=== PATIENT | female | born 1970 | race Caucasian/White ===

== ENCOUNTER → 2018-08-06 21:39 | Outpatient (CLI) | payer BC, SELFPAY ==
[2018-08-13 10:19] LABS: HPV Reflexed? NOT INDICATED
== END ==
PROVIDERS: Referring Provider Nurse Practitioner; Visit Provider Nurse Practitioner
DX: N92.6 Irregular menstruation, unspecified (principal); R58 Hemorrhage, not elsewhere classified; N93.9 Abnormal uterine and vaginal bleeding, unspecified
CPT/HCPCS: 88175; G0145

== ENCOUNTER → 2020-05-07 20:55 | Outpatient (CLI) | payer BC, SELFPAY ==
[2020-05-07 18:56] VITALS: BMI 44.9
[2020-05-07 21:16] LABS: Absolute Lymphocyte Count 1.01 X10^3/uL (0.83-4.51); Absolute Neutrophil Count 6.1 X10^3/uL (2.0-7.7); Basophil# 0.04 X10^3/uL; Basophil% 0.5 % (0-1); Eosinophils% 2.6 % (0-5); Hematocrit 41.3 % (37-47); Hemoglobin 13.2 g/dL (12.0-15.0); Lymphocyte # 1.01 X10^3/ul (4.0); Lymphocyte % 12.9 % (19-41); Mean Corpuscular Hgb 27.6 pg (27.0-32.0); Mean Corpuscular Volume 86.4 fL (81-99); Mean Platelet Vol. 9.1 fl (6.2-12.0); Monocyte# 0.47 X10^3/uL; NRBC Flagged by Analyzer 0 % (0-5); Neutrophil # 6.07 X10^3/uL (2.7-7.7); Neutrophil % 77.9 % (47-70); Platelet Count 278 K/mm3 (150-450); RBC Distribution Width CV 17.3 % (11.6-14.6); Red Blood Count 4.78 M/mm3 (4.2-5.4); White Blood Count 7.8 K/mm3 (4.4-11.0)
[2020-05-07 21:35] LABS: ALB/GLOB Ratio 0.8 RATIO (0.9-2.4); AST(SGOT) 17 U/L (15-37); Alanine Aminotransfer ALT/SGPT 20 U/L (13-56); Albumin, Serum 3.3 g/dL (3.2-5.0); Alkaline Phosphatase 89 U/L (45-117); Anion Gap 6 (5-15); BUN 21 mg/dL (7-18); BUN/Creat Ratio 27.3 RATIO (10-20); Calcium,Total 8.6 mg/dL (8.5-10.1); Chloride 105 mmol/L (98-107); Cholesterol 174 mg/dL (200); Creatinine, Serum 0.77 mg/dL (0.55-1.02); EST Glomerular Filtration Rate 84 mL/min (>60); Est Glom Filt Rate - Afr Amer 102 mL/min (>60); Globulin 4.4 g/dL (2.2-4.2); Glucose 86 mg/dL (74-106); High Density Lipoprotein 42 mg/dL; Potassium 3.8 mmol/L (3.5-5.1); Protein, Total 7.7 g/dL (6.4-8.2); Sodium Level 137 mmol/L (136-145); Thyroid Stim Hormone (TSH) 2.47 uIU/mL (0.358-3.74); Triglycerides 112 mg/dL; Very Low Density Lipoprotein 22 mg/dL (5-40)
== END ==
PROVIDERS: Referring Provider Nurse Practitioner; Visit Provider Nurse Practitioner
DX: I10 Essential (primary) hypertension (principal); F41.9 Anxiety disorder, unspecified
CPT/HCPCS: 80053; 80061; 84443; 85025

== ENCOUNTER → 2020-05-16 20:48 | Outpatient (CLI) | payer BC, SELFPAY ==
[2020-05-16 19:17] VITALS: BMI 44.9
== END ==
PROVIDERS: Referring Provider Nurse Practitioner; Visit Provider Nurse Practitioner
DX: M79.604 Pain in right leg (principal); M79.605 Pain in left leg; R25.2 Cramp and spasm
CPT/HCPCS: 83735

== ENCOUNTER → 2020-05-24 13:22 | Outpatient (CLI) | payer BC, SELFPAY ==
[2020-05-16 19:17] VITALS: BMI 44.9
--- NOTE | 2020-05-24 13:26 | VDLE_ITS ---
Reason For Study: leg pain RIGHT LEFT GSV is normal. GSV is normal. CFV is compressible, spontaneous, phasic, CFV is compressible, spontaneous, phasic, competent and demonstrates normal competent, and demonstrates normal augmentation. augmentation. POP V is compressible, spontaneous, phasic, POP V is compressible, spontaneous, phasic, competent and demonstrates normal competent and demonstrates normal augmentation. augmentation. T/P Trunk is compressible. T/P Trunk is compressible. PTV is compressible. PTV is compressible. RT PerV is compressible. LT PerV is compressible. Prox FV is compressible. Pt was unable to Prox and mid FV are compressible. Pt was tolerate compression of mid and distal FV. unable to tolerate compression of distal FV. Normal venous color flow noted. Normal venous color flow noted. Procedure Exam performed in department. The exam was of fair technical quality due to Pt body habitus. A preliminary report was called and/or faxed to Elissa Lucio. Interpretation Summary Deep veins of the lower extremities appear bilaterally patent. There is no evidence of acute deep vein thrombosis on either side. Valvular competence appears intact within the proximal deep venous systems bilaterally. The great saphenous veins appear bilaterally patent and compressible segmentally. Ordering Physician: Elissa Lucio Performed By: Russell Perez, RVT
== END ==
LOC: CVS 13:25
PROVIDERS: PCP Nurse Practitioner; Referring Provider Nurse Practitioner; Visit Provider Nurse Practitioner
DX: M79.604 Pain in right leg (principal); R25.2 Cramp and spasm; R60.0 Localized edema
CPT/HCPCS: 93970

== ENCOUNTER 2020-06-18 17:45 | Outpatient (RCR) | payer BC, SELFPAY ==
[2020-05-25 18:35] VITALS: BMI 44.9
--- NOTE | 2020-06-20 12:54 | HP.OTEVAL_ITS ---
Patient's Visit Information JOHN FALCON is a 49 year old F, referred to Occupational Therapy by Elissa Lucio NP-Zeke, with a diagnosis of LE lymphedema. Date of Evaluation: 06/18/20 Occupational Therapist: Mireille Medina, OTR/Rena, CHT - Subjective This 49 year old female was seen for OT eval with dx of lymphedema- pt states her swelling has been constant - swelling does not go down and swelling stays in calf area- does not go to toes- pt states she had vascular sx two years ago due to leg pain and swelling. pts leg swelling did not change and pain started 6-8 months after this leg sx. pt states she attempted to wrap her LE with rpitesh wraps for about 4 days but could not keep them up. she even attempted to wear leggings to try to keep wraps up. 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 unless walking back and forth in her work area. pt states her shoes are comfortable. - Pain BLE 0 Pain Intensity Range: 3, 7 - Lymphedema (Circumferential Measure) Mid-foot: right 24cm left 23cm Ankle: right 25cm left 25cm Lower calf: right 39cm left 41cm Largest calf: right 58cm left 58cm Below knee: right 52cm 55cm Lower Exremity Comments: no toe swelling or ankle swelling- pt states swelling in in bilateral calf region-. all LE tissue is soft and supple. no pitting edema noted- skin clean smooth and soft- No dry skin noted - Lower Limb Functional Index Lower Extremity Functional Score: 59 - Goals Demonstrate a 20% reduction in edema by d/c: Yes Demonstrate adequate knowledge skin care/prec by 2nd week: Yes Demonstrate adequate knowledge therapeutic exercises by d/c: Yes Select approp compression garment w/donning/care/wear by d/c: Yes Voice need to replace compression garment every 4-6mo by dc: Yes - Rehabilitation General Assessment: PT demo a need for skilled OT services to ed. pt on compression garment use, exercise to decrease pts leg pain and find compression sock or alternative pt can mtg her LE lymphedema with. Today therapsit spoke in length of compression socks and due to the shape of her legs (thin at foot and ankle large at calf) that it is difficult to keep wraps or compression socks up- therapist ed. pt on use of adhesive glue, compression class 15-20/20-30 mmHg. along with compression alternatives (velcro closer). Therapsit ed. pt on stretching to decrease leg pain, advised pt to stop performing toe raises while at work and a better alternative would be ankle pumps. pt demo understanding. once pt recieves compression garment of her choice pt to return to ensure fit and knowledge of exercises to stimulate circulation. Therapist ed. pt that [facility] was not a durable eq. facility and we could not order garments for her. pt demo understanding and was advised to order on line or [facility], [employer] pt demo understanding and agree to POC. Rehabilitation Potential: Questionable - Anticipated Interventions Education re assistive Equipment, Education re Diagnosis, Manual Lymph Drainage, Education re Life-long lymphedema Management, Education re Self-Bandaging Techniques, Education re Skin Care and Precautions, Education re Self Massage Techniques, Education re Correct Donning Tech,Care&Wearing Sched Comp Garments, Caregiver Training, Home Program - Visit Plan Frequency: 1x/Week Duration: 3 Weeks TEXT: Thank you for the opportunity to evaluate your patient. For Medicare and Medicare HMO plans, please review the plan of care and approve it. It will need to be FAXED BACK to us at [phone] for Medicare purposes. Please let me know if there are questions or concerns regarding this plan of care. Physician Signature: Date:
--- NOTE | 2020-10-09 13:39 | HP.OT.NRP ---
JOHN FALCON was seen in my office for initial evaluation on 06/18/20. The following Plan of Care was established for this patient: Initial Frequency: 1x/Week Initial Duration: 3 Weeks Anticipated Interventions: Education re assistive Equipment, Education re Diagnosis, Manual Lymph Drainage, Education re Life-long lymphedema Management, Education re Self-Bandaging Techniques, Education re Skin Care and Precautions, Education re Self Massage Techniques, Education re Correct Donning Tech,Care&Wearing Sched Comp Garments, Caregiver Training, Home Program This patient was last seen in our office 06/18/20. Pertinent comments regarding their Occupational therapy will appear below: pt seen for eval only- no further apts were scheduled. Due to time lapse in services pt dc at this time. At this point I will be discontinuing this patient from occupational therapy. I would be happy to see this patient again in the future if found appropriate by the physician. Thank you! Mireille Medina, OTR/L, CHT
== END 2020-06-18 19:00 | disposition home or self-care (01) ==
LOC: OT 17:45
PROVIDERS: PCP Nurse Practitioner; Referring Provider Nurse Practitioner; Visit Provider Nurse Practitioner
DX: I89.0 Lymphedema, not elsewhere classified (principal)
CPT/HCPCS: 97166

== ENCOUNTER → 2021-05-10 23:35 | Outpatient (CLI) | payer BC, SELFPAY ==
[2021-05-10 17:25] VITALS: BMI 46.4
[2021-05-10 23:55] LABS: Absolute Lymphocyte Count 1.11 X10^3/uL (0.83-4.51); Absolute Neutrophil Count 4.4 X10^3/uL (2.0-7.7); Basophil# 0.08 X10^3/uL; Basophil% 1.3 % (0-1); Eosinophil# 0.24 X10^3/uL; Eosinophils% 3.9 % (0-5); Hematocrit 42.9 % (37-47); Hemoglobin 13.9 g/dL (12.0-15.0); Lymphocyte # 1.11 X10^3/ul (0.83-4.51); Mean Corp Hgb Conc 32.4 g/dL (32-36); Mean Corpuscular Volume 92.5 fL (81-99); Mean Platelet Vol. 9.3 fl (6.2-12.0); Monocyte# 0.34 X10^3/uL; Monocyte% 5.5 % (0-10); NRBC Flagged by Analyzer 0 % (0-5); Neutrophil # 4.38 X10^3/uL (2.7-7.7); Platelet Count 281 K/mm3 (150-450); RBC Distribution Width SD 47.5 fl (35.1-43.9); Red Blood Count 4.64 M/mm3 (4.2-5.4); White Blood Count 6.2 K/mm3 (4.4-11.0)
[2021-05-11 00:07] LABS: ALB/GLOB Ratio 0.9 RATIO (0.9-2.4); AST(SGOT) 23 U/L (15-37); Alanine Aminotransfer ALT/SGPT 25 U/L (13-56); Albumin, Serum 3.7 g/dL (3.2-5.0); Alkaline Phosphatase 79 U/L (45-117); Anion Gap 7 (5-15); BUN 24 mg/dL (7-18); BUN/Creat Ratio 28.8 RATIO (10-20); Calcium,Total 9.5 mg/dL (8.5-10.1); Chloride 105 mmol/L (98-107); Cholesterol 194 mg/dL (200); Creatinine, Serum 0.83 mg/dL (0.55-1.02); EST Glomerular Filtration Rate 76 mL/min (>60); Est Glom Filt Rate - Afr Amer 93 mL/min (>60); Globulin 4.1 g/dL (2.2-4.2); Glucose 91 mg/dL (74-106); High Density Lipoprotein 56 mg/dL; Potassium 3.3 mmol/L (3.5-5.1); Protein, Total 7.8 g/dL (6.4-8.2); Sodium Level 140 mmol/L (136-145); Triglycerides 131 mg/dL; Very Low Density Lipoprotein 26 mg/dL (5-40)
== END ==
PROVIDERS: PCP Nurse Practitioner; Referring Provider Nurse Practitioner; Visit Provider Nurse Practitioner
DX: I10 Essential (primary) hypertension (principal)
CPT/HCPCS: 80053; 80061; 85025

== ENCOUNTER → 2022-04-16 | Outpatient (CLI) | payer BC, SELFPAY ==
[2022-04-16 21:26] LABS: Absolute Lymphocyte Count 1.43 X10^3/uL (0.83-4.51); Absolute Neutrophil Count 4.3 X10^3/uL (2.0-7.7); Basophil# 0.06 X10^3/uL; Basophil% 0.9 % (0-1); Eosinophils% 3.2 % (0-5); Hematocrit 41.9 % (37-47); Hemoglobin 14.3 g/dL (12.0-15.0); Lymphocyte # 1.43 X10^3/ul (0.83-4.51); Lymphocyte % 22.6 % (19-41); Mean Corp Hgb Conc 34.1 g/dL (32-36); Mean Corpuscular Hgb 30.7 pg (27.0-32.0); Mean Corpuscular Volume 89.9 fL (81-99); Mean Platelet Vol. 9.3 fl (6.2-12.0); Monocyte# 0.36 X10^3/uL; Monocyte% 5.7 % (0-10); NRBC Flagged by Analyzer 0 % (0-5); Neutrophil # 4.26 X10^3/uL (2.7-7.7); Neutrophil % 67.4 % (47-70); Platelet Count 282 K/mm3 (150-450); RBC Distribution Width CV 13.2 % (11.6-14.6); RBC Distribution Width SD 43.3 fl (35.1-43.9); Red Blood Count 4.66 M/mm3 (4.2-5.4); White Blood Count 6.3 K/mm3 (4.4-11.0)
[2022-04-16 21:45] LABS: ALB/GLOB Ratio 1.1 RATIO (0.9-2.4); AST(SGOT) 19 U/L (15-37); Alanine Aminotransfer ALT/SGPT 22 U/L (13-56); Alkaline Phosphatase 73 U/L (45-117); Anion Gap 8 (5-15); BUN 21 mg/dL (7-18); BUN/Creat Ratio 22.3 RATIO (10-20); Calcium,Total 9.4 mg/dL (8.5-10.1); Chloride 101 mmol/L (98-107); Cholesterol 196 mg/dL (200); Creatinine, Serum 0.94 mg/dL (0.55-1.02); EST Glomerular Filtration Rate 66 mL/min (>60); Est Glom Filt Rate - Afr Amer 80 mL/min (>60); Globulin 3.6 g/dL (2.2-4.2); Glucose 93 mg/dL (74-106); High Density Lipoprotein 55 mg/dL; Potassium 3.6 mmol/L (3.5-5.1); Protein, Total 7.6 g/dL (6.4-8.2); Sodium Level 136 mmol/L (136-145); Triglycerides 103 mg/dL; Very Low Density Lipoprotein 21 mg/dL (5-40)
== END | disposition home or self-care (01) ==
PROVIDERS: PCP Nurse Practitioner; Referring Provider Nurse Practitioner; Visit Provider Nurse Practitioner
DX: F41.9 Anxiety disorder, unspecified (principal); I10 Essential (primary) hypertension
CPT/HCPCS: 80053; 80061; 85025

== ENCOUNTER → 2023-04-13 | Outpatient (CLI) | payer BC, SELFPAY ==
[2023-04-13 21:42] LABS: Absolute Neutrophil Count 4.4 X10^3/uL (2.0-7.7); Basophil# 0.06 X10^3/uL; Basophil% 0.9 % (0-1); Eosinophil# 0.19 X10^3/uL; Eosinophils% 2.8 % (0-5); Hematocrit 45.5 % (37-47); Hemoglobin 14.9 g/dL (12.0-15.0); Lymphocyte % 22.5 % (19-41); Mean Corp Hgb Conc 32.7 g/dL (32-36); Mean Corpuscular Hgb 30.5 pg (27.0-32.0); Mean Corpuscular Volume 93.2 fL (81-99); Monocyte# 0.48 X10^3/uL; Monocyte% 7.2 % (0-10); NRBC Flagged by Analyzer 0 % (0-5); Neutrophil # 4.44 X10^3/uL (2.7-7.7); Neutrophil % 66.5 % (47-70); Platelet Count 272 K/mm3 (150-450); RBC Distribution Width CV 13.4 % (11.6-14.6); RBC Distribution Width SD 45.8 fl (35.1-43.9); Red Blood Count 4.88 M/mm3 (4.2-5.4); White Blood Count 6.7 K/mm3 (4.4-11.0)
[2023-04-13 21:59] LABS: AST(SGOT) 19 U/L (15-37); Alanine Aminotransfer ALT/SGPT 26 U/L (13-56); Albumin, Serum 3.8 g/dL (3.2-5.0); Alkaline Phosphatase 76 U/L (45-117); Anion Gap 6 (5-15); BUN 19 mg/dL (7-18); BUN/Creat Ratio 23.9 RATIO (10-20); Calcium,Total 9.7 mg/dL (8.5-10.1); Chloride 103 mmol/L (98-107); Cholesterol 217 mg/dL (200); Creatinine, Serum 0.79 mg/dL (0.55-1.02); EST Glomerular Filtration Rate 80 mL/min (>60); Est Glom Filt Rate - Afr Amer 97 mL/min (>60); Globulin 3.9 g/dL (2.2-4.2); Glucose 91 mg/dL (74-106); High Density Lipoprotein 62 mg/dL; Potassium 3.4 mmol/L (3.5-5.1); Protein, Total 7.7 g/dL (6.4-8.2); Sodium Level 140 mmol/L (136-145); Triglycerides 95 mg/dL; Very Low Density Lipoprotein 19 mg/dL (5-40)
== END | disposition home or self-care (01) ==
PROVIDERS: PCP Nurse Practitioner; Visit Provider Nurse Practitioner
DX: I10 Essential (primary) hypertension (principal); F41.9 Anxiety disorder, unspecified; R60.0 Localized edema
CPT/HCPCS: 80053; 80061; 85025

== ENCOUNTER → 2025-06-28 | Outpatient (CLI) | payer OTHER, SELFPAY ==
--- OUTSIDE RECORDS SUMMARY | 2025-06-28 21:32 | XMS RPT_ITS | CCD ---
Author Organization [facility] Care Team Providers Care Dominatrix Name Role Phone KEITHJoselineROSA Attending Unavailable Viktoriya Garcia Unavailable [phone] Kyle Mcdonald Referring Unavailable Jose, Ms. Viktoriya L Primary Care Unavailab Dr. Kyle Michel Attending Unavailable Jose, Ms. Viktoriya L Primary Care UnavailDr. Kyle Fernandez Attending Unavailable GARCIA, VIKTORIYA L Primary Care Unavailable JULITO CORONADO III Attending Unavailabl e Garcia WOOD GRINDER.GREGG, Viktoriya L Primary Care Provide r YONI CROCKETT Attending Unavailable GARCIA, VIKTORIYA L Primary Care Unavailable YONI CROCKETT Attending Unavailable GARCIA, VIKTORIYA L Primary Care Unavailable JULITO CORONADO III Referring Unavailkristen e IVETH CHOW Attending Unavail able JOSE, VIKTORIYA Primary Care Unavailable GARCIA, VIKTORIYA Primary Care Unavailable IVETH CHOW Attending Unavail able Rohini Farmer Attending Unavailable Garcia Viktoriya Referring Unavailable Garcia, Viktoriya Primary Care Unavailable Garcia PEDIATRIC ORTHODONTIST-CViktoriya Primary Care Provider [phone] Viktoriya Guidry Attending Provider Viktoriya Guidry Referring Provider Rohini Leonard Attending Provider Medications Current Medications Medication Drug Class(es) Dates Sig (Normalized) Sig (Original) citalopram 20 mg oral tablet (12 sources) Serotonin Reuptake Inhibitor Start: 04-16-2022 End: 03-16-2023 take 20 mg by mouth once daily Citalopram Active 20 MG PO DAILY 90 April 16, 2022 5:58pm Start: 05-07-2020 End: 04-16-2022 take 1 tablet by mouth once daily Citalopram 10 mg tablet Discontinued 10 mg PO DAILY 90 May 10, 2021 5:26pm April 16, 2022 5:59pm lymphedema clinic (4 sources) Start: 05-28-2020 lymphedema cli isabella Active 0 .Route .MEDSUPPLY 1 May 28, 2020 1:34pm patient to be evaluated and treated for lymphedema bilat lower ext bilateral lower ext venous study is neg all compressible Start: 05-28-2020 End: 05-28-2020 lymphedema clinic Discontinu ed .Route May 28, 2020 1:30pm May 28, 2020 1:35pm patient to be evaluated and treated for lymphedema bilat lower ext bilateral lower ext venous study is neg all compressible Start: 05-28-2020 End: 05-28-2020 lymphedema clinic Discontinu ed .Route May 28, 2020 12:00am May 28, 2020 1:35pm patient to be evaluated and treated for lymphedema bilat lower ext bilateral lower ext venous study is neg all compressible rOPINIRole 0.5 mg oral tablet (4 sources) Nonergot Dopamine Agonist Start: 03-14-2025 End: 03-15-2025 take 2 tablets by mouth three times daily at bedtime Ropinirole 0.5 mg tablet Active 1 mg PO THREE TIMES A DAY 180 March 15, 2025 11:55am administer 1-3 hours before bedtime Start: 10-18-2024 End: 03-14-2025 take 1 tablet by mouth at bedtime Ropinirole 0.5 mg tablet Discontinued 0.5 mg PO AT BEDTIME October 18, 2024 1:00am March 14, 2025 5:21pm administer 1-3 hours before bedtime Start: 09-05-2024 End: 10-18-2024 Ropinirole 0.25 mg tablet Discontinued 0.25 mg PO AT BEDTIME September 05, 2024 12:00am October 18, 2024 12:52pm administer 1-3 hours before bedtime do 1 pill at hs for 5 days then double the dose and continue follow up if need to go higher 24 hr venlafaxine 150 mg extended release oral capsule (11 sources) Serotonin and Norepinephrine Reuptake Inhibitor Start: 04-16-2023 End: 03-15-2025 take 1 capsule by mouth once daily Venlafaxine 150 mg capsule,extended release 24hr Active 150 mg PO DAILY March 15, 2025 11:56am Start: 04-16-2023 End: 04-30-2023 take 1 capsule by mouth once daily Venlafaxine 75 mg capsule,extended release 24hr Discontinued 75 mg PO DAILY April 16, 2023 12:00am April 30, 2023 5:56pm Start: 04-13-2023 End: 04-30-2023 take 1 tablet by mouth once daily Venlafaxine 150 mg tablet extended release 24hr Discontinued 150 mg PO DAILY April 13, 2023 12:00am April 16, 2023 12:28pm Start: 03-16-2023 End: 04-13-2023 take 1 capsule by mouth once daily Venlafaxine (Effexor Xr) 75 mg capsule,extended release 24hr Discontinued 75 mg PO DAILY March 16, 2023 12:00am April 13, 2023 7:23pm Completed/Discontinued Medications Medication Drug Class(es) Dates Sig (Normalized) Sig (Original) [id number] 200 actuat albuterol 0.09 mg/actuat metered dose inhaler (3 sources) beta2-Adrenergic Agonist Start: 09-11-2022 take 2 puff(s) by inhalation every four to six hours Ventolin HFA 108 (90 Base) MCG/ACT Inhalation Aerosol Solution INHALE 2 PUFFS EVERY 4-6 HOURS, SPACED 60 SECONDS APART. Quantity: 1 Refills: 0 Ordered: 11-Sep-2022 Kyle Mcdonald MD Start : 11-Sep-2022 Active dispense with adult spacer amoxicillin 875 mg oral tablet (2 sources) Penicillin-class Antibacterial Start: 07-22-2018 End: 05-07-2020 take 875 mg by mouth twice daily Amoxicillin Discontinued 875 MG PO TWICE A DAY July 22, 2018 7:26pm May 07, 2020 6:57pm amoxicillin 875 mg / clavulanate 125 mg oral tablet (1 source) Penicillin-class Antibacterial Start: 09-05-2024 End: 10-18-2024 Amoxicillin-Pot Clavulanate 875-125 mg tablet Discontinued 1 {tbl} PO TWICE A DAY September 05, 2024 12:00am October 18, 2024 12:51pm azithromycin 250 mg oral tablet (5 sources) Macrolide Antimicrobial Start: 03-15-2025 End: 03-20-2025 take 2 tablets by mouth once daily, then take 1 tablet by mouth once daily at mealtime Azithromycin 250 mg tablet Discontinued 250 mg PO daily 04 13March 15, 2025 12:00am March 19, 2025 12:00am March 20, 2025 12:07am 2 po qd for 1 day then 1 po qd for 4 days with food or after eating Start: 05-10-2024 End: 05-15-2024 take 2 tablets by mouth once daily, then take 1 tablet by mouth once daily at mealtime Azithromycin 250 mg tablet Discontinued 250 mg PO daily 04 13May 10, 2024 3:19pm May 14, 2024 12:00am May 15, 2024 12:04am 2 po qd for 1 day then 1 po qd for 4 days with food or after eating Start: 02-08-2024 End: 02-13-2024 take 2 tablets by mouth once daily, then take 1 tablet by mouth once daily at mealtime Azithromycin 250 mg tablet Discontinued 250 mg PO daily 04 13February 08, 2024 12:00am February 12, 2024 12:00am February 13, 2024 12:14am 2 po qd for 1 day then 1 po qd for 4 days with food or after eating Start: 08-17-2023 End: 08-22-2023 take 2 tablets by mouth once daily, then take 1 tablet by mouth once daily at mealtime Azithromycin 250 mg tablet Discontinued 250 mg PO daily 04 13August 17, 2023 6:23pm August 21, 2023 12:00am August 22, 2023 12:25am 2 po qd for 1 day then 1 po qd for 4 days with food or after eating Start: 03-16-2023 End: 03-21-2023 take 2 tablets by mouth once daily, then take 1 tablet by mouth once daily at mealtime Azithromycin 250 mg tablet Discontinued 250 mg PO daily 6 March 16, 2023 12:00am March 20, 2023 12:00am March 21, 2023 12:13am 2 po qd for 1 day then 1 po qd for 4 days with food or after eating cefdinir 300 mg oral capsule (1 source) Cephalosporin Antibacterial Start: 02-01-2024 End: 05-10-2024 take 1 capsule by mouth twice daily Cefdinir 300 mg capsule Discontinued 300 mg PO TWICE A DAY February 01, 2024 12:00am May 10, 2024 3:14pm hydroCHLOROthiazide 12.5 mg / lisinopril 20 mg oral tablet (18 sources) Thiazide Diuretic, Angiotensin Converting Enzyme Inhibitor Start: 10-21-2018 lisinopril-hydro chlorothiazide (PRINZIDE,ZESTOR ETIC) 20-12.5 mg per tablet Start: 07-22-2018 End: 04-16-2022 take 1 tablet by mouth once daily Lisinopril-Hydrochlorothiazide Active 1 TABLET PO DAILY April 16, 2022 5:59pm Start: 07-22-2018 End: 03-15-2025 Lisinopril-Hydrochlorothiazi de 20-12.5 mg tablet Discontinued 1 {tbl} PO DAILY March 14, 2025 5:20pm March 15, 2025 11:57am hydrOXYzine hydrochloride 10 mg oral tablet (2 sources) Antihistamine Start: 05-07-2020 End: 04-16-2022 take 10 mg by mouth three to four times daily Hydroxyzine Hcl Discontinued 10 MG PO 3 to 4 times per day May 07, 2020 7:04pm April 16, 2022 5:58pm On Hold: None ibuprofen 600 mg oral tablet (10 sources) Nonsteroidal Anti-inflammatory Drug Start: 08-23-2023 take 1 tablet by mouth every six hours as needed ibuprofen (MOTRIN) 600 mg tablet Take 1 tablet by mouth every 6 hours as needed for pain. 30 tablet 0 08/23/2023 Active Start: 08-03-2020 take 1 tablet by reed th three times daily as needed Ibuprofen 800 MG Oral Tablet TAKE 1 TABLET 3 TIMES DAILY NEEDED. Quantity: 12 Refills: 0 Ordered: 29-Aug-2021 Esther Martin PA-C Start : 29-Aug-2021 Active Comment on above: Take 1 tablet by reed th every 6 hours as needed for pain. lisinopril 5 mg oral tablet (4 sources) Angiotensin Converting Enzyme Inhibitor Start: 2019 take 1 tablet by mouth once daily Lisinopril 5 MG Oral Tablet Take 1 tablet daily Quantity: 90 Refills: 3 Ordered: 03-Aug-2020 DO Start : 03-Aug-2020 Active medroxyPROGESTERone acetate 10 mg oral tablet (2 sources) Progestin Start: 2018 medroxyPROGESTERone (PROVERA, CYCRIN) 10 mg tablet meloxicam 15 mg oral tablet (4 sources) Nonsteroidal Anti-inflammatory Drug Start: 2023 End: 2024 take 1 tablet by mouth once daily Meloxicam 15 mg tablet Discontinued 15 mg PO daily October 18, 2024 12:54pm March 15, 2025 11:56am Start: 08-26-2023 take 1 tablet by reed th once daily meloxicam (MOBIC) 7.5 mg tablet Take 1 tablet by mouth once daily. 30 tablet 2 08/26/2023 Active Comment on above: Take 1 tablet by reed th once daily. oseltamivir 75 mg oral capsule (1 source) Neuraminidase Inhibitor Start: 02-14-20 End: 02-19-20 take 1 capsule by mouth twice daily Oseltamivir 75 mg capsule Discontinued 75 mg PO TWICE A DAY 08 13February 13, 2025 12:00am February 17, 2025 12:00am February 18, 2025 12:17am predniSONE 20 mg oral tablet (4 sources) Start: 02-01-20 End: 03-15-20 take 2 tablets by mouth once daily Prednisone 20 mg tablet Discontinued 40 mg PO DAILY September 05, 2024 6:54pm March 15, 2025 11:56am Start: 08-17-2023 End: 01-05-2024 take 2 tablets by mouth once daily Prednisone 20 mg tablet Discontinued 40 mg PO DAILY August 17, 2023 12:00am January 05, 2024 8:25pm valACYclovir 1000 mg oral tablet (4 sources) Herpesvirus Nucleoside Analog DNA Polymerase Inhibitor, Herpes Simplex Virus Nucleoside Analog DNA Polymerase Inhibitor, Herpes Zoster Virus Nucleoside Analog DNA Polymerase Inhibitor Start: 08-29-2021 take 1 tablet by mouth three times daily valACYclovir HCl - 1 GM Oral Tablet TAKE 1 TABLET 3 TIMES DAILY. Quantity: 21 Refills: 0 Ordered: 29-Aug-2021 Esther Martin PA-C Start : 29-Aug-2021 Active vitamin b12 1 mg/ml injectable solution (1 source) Vitamin B12 Start: 07-22-2018 End: 07-22-2018 inject 1000 ug by intramuscular injection once cyanocobalamin (vitamin B-12) 1,000 mcg/mL injection solution Discontinued 1000 MCG IM ONCE 1 July 22, 2018 6:51pm July 22, 2018 7:50pm Problems Active Problems Problem Classification Problem Date Documented Da te Episodic/Chronic Anxiety disorders (2 sources) Anxiety; Translations: [Anxiety disorder, unspecified] 05-07-2020 Chronic Chronic obstructive pulmonary disease and bronchiectasis (1 source) Bronchitis; Translations: [Bronchitis, not specified as acute or chronic] 08-18-2023 Episodic Deficiency and other anemia (2 sources) Anemia; Translations: [Anemia, unspecified] 01-18-2019 Episodic Essential hypertension (2 sources) Hypertensive disorder; Translations: [Essential (primary) hypertension] 05-07-2020 Chronic Lymphadenitis (1 source) Localized enlarged lymph nodes; Translations: [Localized enlarged lymph nodes] Onset: 9 Episodic Menopausal disorders (1 source) Menopausal flushing; Translations: [Menopausal and female climacteric states] 03-16-2023 Chronic Menstrual disorders (2 sources) Irregular periods; Translations: [Irregular menstruation, unspecified] 08-06-2018 Chronic Mood disorders (1 source) Menopausal depression; Translations: [Other specified depressive episodes] 04-14-2023 Chronic Nonspecific chest pain (4 sources) Chest pain, unspecified; Translations: [Chest discomfort] Onset: 9 Episodic Nutritional deficiencies (2 sources) Cobalamin deficiency; Translations: [Deficiency of other specified B group vitamins] 07-22-2018 Episodic Other circulatory disease (4 sources) Vascular disorder; Translations: [Unspecified circulatory system disorder] Episodic Other circulatory disease (2 sources) Bleeding; Translations: [Hemorrhage, not elsewhere classified] 08-06-2018 Episodic Other connective tissue disease (2 sources) Cramp in lower limb; Translations: [Cramp and spasm] 05-16-2020 Episodic Other connective tissue disease (2 sources) Pain in lower limb; Translations: [Pain in right leg] 05-16-2020 Episodic Other connective tissue disease (1 source) Pain in right leg; Translations: [Right leg pain] Onset: 3 Episodic Other connective tissue disease (2 sources) Right achilles tendonitis; Translations: [Achilles tendinitis, right leg] 09-21-2023 Episodic Other diseases of veins and lymphatics (2 sources) Lymphedema; Translations: [Lymphedema, not elsewhere classified] 05-10-2021 Chronic Other diseases of veins and lymphatics (2 sources) Acquired lymphedema of lower extremity; Translations: [Lymphedema, not elsewhere classified] 05-25-2020 Chronic Other diseases of veins and lymphatics (1 source) Lymphedema, not elsewhere classified; 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] 03-15-2025 Chronic Other female genital disorders (2 sources) Vaginal bleeding; Translations: [Abnormal uterine and vaginal bleeding, unspecified] 08-06-2018 Chronic Other hematologic conditions (1 source) Disease of spleen, unspecified; Translations: [Disease of spleen, unspecified] Onset: 9 Episodic Other hereditary and degenerative nervous system conditions (1 source) Restless legs; Translations: [Restless legs syndrome] 09-05-2024 Chronic Other lower respiratory disease (4 sources) Cough; Translations: [Cough] Episodic Other lower respiratory disease (3 sources) Dyspnea; Translations: [Other respiratory abnormalities] Episodic Other lower respiratory disease (3 sources) Dyspnea, unspecified; Translations: [Dyspnea, unspecified] Onset: 2 Episodic Other lower respiratory disease (1 source) Other forms of dyspnea; Translations: [Other forms of dyspnea] Onset: 2 Episodic Other non-traumatic joint disorders (2 sources) Pain in right knee; Translations: [Right knee pain] 05-10-2021 Episodic Other nutritional; endocrine; and metabolic disorders (3 sources) Excessive thirst; Translations: [Polydipsia] Episodic Other upper respiratory infections (2 sources) Maxillary sinusitis; Translations: [Chronic maxillary sinusitis] 07-22-2018 Chronic Other upper respiratory infections (2 sources) Pharyngitis; Translations: [Acute pharyngitis, unspecified] 07-22-2018 Episodic Otitis media and related conditions (3 sources) Acute right otitis media; Translations: [Otitis media, unspecified, right ear] 02-01-2024 Episodic Phlebitis; thrombophlebitis and thromboembolism (6 sources) Thrombophlebitis of superficial veins of lower extremity; Translations: [Phlebitis and thrombophlebitis of superficial vessels of lower extremities] 05-16-2020 Episodic Residual codes; unclassified (2 sources) Edema of lower extremity; Translations: [Localized edema] 05-16-2020 Episodic Sprains and strains (1 source) Strain of other muscle(s) and tendon(s) at lower leg level, right leg, initial encounter; Translations: [Strain of right calf muscle] Onset: 3 Episodic Varicose veins of lower extremity (8 sources) Varicose veins of lower extremity; Translations: [Varicose veins of lower extremities with other complications] Episodic Viral infection (4 sources) Herpes zoster without complication; Translations: [Herpes zoster without mention of complication] Episodic Past or Other Problems Problem Classification Problem Date Documented Da te Episodic/Chronic Unclassified (1 source) pass large clots during menses 06-09-2022 Results Test Name Value Interpretation Reference Range Facility MR/[place] 04-11-2025 MR/MARIELY [facility] [address] [place] [address] OFFICE VISIT Date of Service: 04/11/25 MR#: [id number] Acct: [id number] Name: MARLSY FALCON Daron Rep #: [id number] : 1970 Provider: CHELITA Draper Age/Sex: 54/F Location: [facility] Status: Signed Intake Vital Signs 03/14/25 16:59 04/11/25 15:41 Height 5 ft 5 in Weight: 269 lb BP 114/75 Blood Pressure Location Lt brachial Position Sitting Respiration 16 Pulse 93 Pulse Source Monitor Temp 98.4 F Temp Source Temporal Pulse Oximetry (%) 97 Oxygen Delivery Method room air Intake Visit Reasons: Lymphadema Is patient in pain?: No Allergies No Known Allergies Allergy (Verified 04/11/25 15:44) Medications ???Medication ???Instructions ???Recorded ???Confirmed ???Type lymphedema clinic #1 ea 05/28/20 04/11/25 Rx lisinopril 20 1 tab PO DAILY #30 tabs 03/15/25 0 04/11/25 Rx mg-hydrochlorothiazide 12.5 mg tablet ropinirole 0.5 mg tablet 1 mg (2 x 0.5 mg) PO TID 30 days 0 03/15/25 04/11/25 Rx #180 tabs venlafaxine 150 mg 150 mg PO DAILY #30 caps 03/15/25 04/11/25 Rx capsule,extended release 24 hr Is last menstrual period known: No Post menopausal: Yes Patient : No Have you fallen in the past year?: No PFSH Medical History Menopausal depression Lymphedema pass large clots during menses Menses painful Hypertension Surgical History S/P ANTHONY-BSO (total abdominal hysterectomy and bilateral salpingo-oophorectomy) Social History Smoking Status: Never smoker alcohol intake: current substance use type: does not use Female Reproductive History Menstrual Duration of menses: >10 days HPI HPI HPI: MARLYS FALCON, is a 54 F who presents to the office today for evaluation for lymphedema as referred by her PCP. She reports her legs have looked like this forever referring to carrying more weight in her lower extremities. She has noticeable adipose accumulation in the buttocks, thighs, and lower legs around her knees, stops fairly abruptly mid-distal calf with trace swelling at the ankles. She refers to these areas of adipose accumulation as swelling, she reports they remain a consistent size throughout the day and she does not notice any improvement with the use of compression stockings. She does not have any history of cancer, radiation, lymph node dissection, no family history of lower extremity edema. She reports that she had multiple bilateral venous ablations in the past to try to help with the swelling and she had no improvement at all following those procedures. She has a few, varicosities bilaterally but reports these are newer and she does not have symptoms focal to these areas. The more focal areas of swelling/adipose accumulation are tender to touch, not painful at rest. This does limit her mobility and she has an associated feeling of heaviness and fatigue in her legs. She has been very dedicated in trying to lose weight by being conscientious with diet, maintaining calorie deficit, working out consistently with household personal assistant and has a lot of support and motivation from her daughter but despite this has not been able to lose much weight and has not noticed any decrease in size at all through her lower extremities, has not seen improvement in size. She has had no improvement in the past with use of diuretics. ROS General General: Yes fatigue and weakness; No weight change, appetite, colon cancer or breast cancer HEENT HEENT: No difficulty swallowing, eye injury, eye surgery, swollen glands or hoarseness Endo Endocrine: No thyroid disease, diabetes mellitus, thyroid cancer, Hair loss, heat intolerance or cold intolerance Skin Skin: No rash or changing moles Musc Musculoskeletal: Yes arthritis; No back problems, rheumatoid arthritis, gout or joint pain Cardio Cardiovascular: Yes high blood pressure; No murmur, pacemaker, heart disease, atrial fibrillation, heart attack, heart stent, palpitations, shortness of breath with exertion or chest pain Psych Psychiatric: No depression, anxiety or hearing voices Resp Respiratory: No shortness of breath, No sleep apnea, No cough, No COPD, No asthma, No emphysema and No wheezing Gastro Gastrointestinal: No abdominal pain, No nausea or vomiting, No diarrhea, No constipation, No blood in stool, No acid reflux, No hemorrhoids, No ulcers, No gallbladder problem and No black,tarry stools [place] Hematologic: No blood thinners, No blood disorders, No bleeding, No anemia and No blood clots Neuro Neurologic: No system reviewed and no additional complaints, except as doc (more content not included)... Normal [facility] Physician Progress No narcisa 12-06-2024 [facility] Physician Progress Note MARLYS FALCON :1970 Registration Date:12/06/2024 Assessment/Plan This Visit Diagnosis 1. Well woman exam Z01.419 2. Screening mammogram, encounter for Z12.31 Ordered: MAMM SCRN BI PURNIMA, 12/06/2024, Routine, SCREENING, Ambulatory, Screening mammogram, encounter for 3. total hysterectomy Z90.710 Medication Reconciliation What When Instructions Unchanged hydrochlorothiazide-lisino pril (hydrochlorothiazide-lisin opril 12.5 mg-20 mg oral tablet) Unchanged meloxicam (meloxicam 7.5 mg oral tablet) Unchanged rOPINIRole = requip (rOPINIRole 0.5 mg oral tablet) Unchanged venlafaxine (venlafaxine 150 mg oral capsule, extended release) Chief Complaint Annual, s/p hyst mammo- needs order has not had one since 2019 History of Present Illness Annual s/p hyst mammo due she states leaks some in the morning encouraged kegels BMi 45 she reports decrease libido Physical Exam Vitals & Measurements BP: 130/ 88 HT: 166 cm WT: 125 kg BMI: 45.36 Depression Screening Scores Initial Depression Screen Score: 0 (12/06/24 08:40:00) Fall Risk Assessment Is the patient ambulatory (mobile): Yes (12/06/24 08:40:00) Have you had a fall within the past: No (12/06/24 08:40:00) Have you had 2 or more falls in the past: No (12/06/24 08:40:00) Constitutional: Appears appropriate for age, non-toxic, and comfortable. No signs of apparent distress present. Speech is clear and appropriate. Awake and oriented x3. Stand comfortably erect. Patient is cooperative. VSS Eyes: Full range of extra-ocular motion. Conjunctivae clear. Neck: supple and no thyromegaly Respiratory: Chest expansion is adequate bilaterally. Lungs Clear Cardiovascular: Rate is regular and rhythm, normal S1S2 Abdomen: Soft and Non-tender, Non distended Musculoskeletal: Walks with a normal gait. Motor strength is intact Ext: No C/C/E Skin: Warm and dry with no evidence of unusual rashes or suspicious lesions. Neurological: Alert and oriented x 3. Mood is normal. Breast exam: normal bilateral breast tissue, no skin changes no masses and no nipple discharge Pelvic Exam: Ext Gen: normal Vulva anatomy no rash Perineum: no lesions and intact Vagina: no cystocele or rectocele vaginal mucosa healthy pink cervix: absent Uterus: absent adnexa: NT and no masses Pelvic muscles: normal muscle tauntness/support PALEOLOGIST Additional Details Menstrual History Menstrual StatusHysterectomy OB History History (1,0,0,1) # 1 Baby 1 Outcome Date: 07/1999 Outcome or Result: Vaginal Gest Age: Fullterm Outcome: Live Sex: Female Wt: 4082 g Comment: other dr Problem List/Past Medical History Ongoing Anxiety HTN (hypertension) Leg swelling Restless leg total hysterectomy Historical Anemia Procedure/Surgical History LAVH b/l salpingectomy left oophorectomy: 05/19/19: IVETH CHOW Mammogram-normal: 02/01/19 Pap normal: 08/02/18 Medications hydrochlorothiazide-lisino pril(hydrochlorothiazide-l isinopril 12.5 mg-20 mg oral tablet) meloxicam(meloxicam 7.5 mg oral tablet) rOPINIRole = requip(rOPINIRole 0.5 mg oral tablet) venlafaxine(venlafaxine 150 mg oral capsule, extended release) Allergies No Known Allergies Social History Alcohol - Denies Alcohol Use Sexual Sexually active:Yes Other contraceptive use:hyst Substance Abuse - Denies Substance Abuse Tobacco Use:Never (less than 100 in lifetime) Family History Diabetes mellitus: Mother and Father. Heart disease: Mother and Father. Health Status Family Member(s) Normal [facility] Ambulatory Clinical Summaryo n 12-06-2024 Ambulatory Clinical Summary MARLYS FALCON :1970 Registration Date:12/06/2024 Ambulatory Visit Instructions Your Diagnosis Well woman exam Screening mammogram, encounter for total hysterectomy Your Care Team Attending Physician - IVETH CHOW Primary Care Physician - VIKTORIYA GARCIA Procedures Performed LAVH b/l salpingectomy left oophorectomy (05/19/2019) Mammogram-normal (02/01/2019) Pap normal (08/02/2018) Discharge Vitals Blood Pressure 130/ 88 Height 65.35 in (166 cm) Weight 275.62 lb (125 kg) BMI 45.36 Systolic Blood Pressure: 130 mmHg High (12/06/24 08:40:00) Diastolic Blood Pressure: 88 mmHg High (12/06/24 08:40:00) Mean Arterial Pressure: 102 mmHg (12/06/24 08:40:00) Height/Length Measured: 166 cm (12/06/24 08:40:00) Weight Measured: 125 kg (12/06/24 08:40:00) Body Mass Index Measured: 45.36 kg/m2 (12/06/24 08:40:00) Weight Measured - lbs2: 275 lb (12/06/24 08:40:00) Height/Length Measured - in2: 65.35 in (12/06/24 08:40:00) Body Mass Index Measured English2: 45.27 kg/m2 (12/06/24 08:40:00) BSA: 2.4 m2 (12/06/24 08:40:00) Ht/Wt Measurement Refused by Patient?2: No (12/06/24 08:40:00) What to do next Scheduled Follow-Up Appointments Appointment Type Reason for visit Day With Date Time Where [facility] [address] Annual Exam ANNUAL 12/06/24Thursday Iveth Howard DO December 08, 2025 08:00 [facility] [address] [place] [address] ZIP:[id number] You Need to Schedule the Following Appointments MAMM SCRN [place]O [place], 12/06/2024, Routine, SCREENING, Ambulatory, Screening mammogram, encounter for Medications What When Instructions Unchanged hydrochlorothiazide-lisino pril (hydrochlorothiazide-lisin opril 12.5 mg-20 mg oral tablet) Unchanged meloxicam (meloxicam 7.5 mg oral tablet) Unchanged rOPINIRole = requip (rOPINIRole 0.5 mg oral tablet) Unchanged venlafaxine (venlafaxine 150 mg oral capsule, extended release) Allergies No Known Allergies Problems Ongoing - Any problem that you are currently receiving treatment for. Anxiety HTN (hypertension) Leg swelling Restless leg total hysterectomy Common Emergency Awareness Tips IS IT A STROKE? Act FAST and Check for these signs: FACE Does the face look uneven? ARM Does one arm drift down? SPEECH Does their speech sound strange? TIME Call at any sign of stroke Heart Attack Signs Chest discomfort: Most heart attacks involve discomfort in the center of the chest and lasts more than a few minutes, or goes away and comes back. It can feel like uncomfortable pressure, squeezing, fullness or pain. Discomfort in upper body: Symptoms can include pain or discomfort in one or both arms, back, neck, jaw or stomach. Shortness of breath: With or without discomfort. Other signs: Breaking out in a cold sweat, nausea, or lightheaded. Remember, MINUTES DO MATTER. If you experience any of these heart attack warning signs, call to get immediate medical attention! Normal [facility] Comprehensive Intake - Texto n 12-06-2024 Comprehensive Intake - Text Comprehensive Intake Entered On: 12/06/2024 8:41 EST Performed On: 12/06/2024 8:40 EST by Keturah Phillips MA Summary Menstrual Status : Hysterectomy Chief Complaint : Annual, s/p hyst mammo- needs order has not had one since 2019 Keturah Phillips MA - 12/06/2024 8:43 EST Bladder Control Issues? : No Urine Leakage? : No Presence or absence of urinary incontinence assessed : Yes CPT-II Medication list doc'd in medical record : Yes Influenza immunization administered or previously received : No Pneumococcal vaccine administered or previously received : No Keturah Phillips MA - 12/06/2024 8:40 EST Measurements Weight Measured : 125 kg(Converted to: 275 lb 9 oz, 275.578 lb) Body Mass Index Measured : 45.36 kg/m2 Body Mass Index documented : Yes Weight Measured - lbs : 275 lb(Converted to: 275 lb 0 oz, 125 kg) Body Mass Index Measured Lithuanian : 45.27 kg/m2 BSA Lithuanian : 2.4 m2 Keturah Phillips MA - 12/06/2024 8:41 EST Ht/Wt Measurement Refused by Patient? : No Height/Length Measured : 166 cm(Converted to: 5 ft 5 in, 65.35 in) Height/Length Measured - in : 65.35 in(Converted to: 5 ft 5 in, 166 cm) Keturah Phillips MA - 12/06/2024 8:40 EST Vitals Require BP : Yes Systolic Blood Pressure : 130 mmHg (HI) Diastolic Blood Pressure : 88 mmHg (HI) Mean Arterial Pressure : 102 mmHg Last Systolic BP : 130-139 mmHg Last Diastolic BP : 80-89 mmHg Pain Present : No actual or suspected pain Pain : 0 Pain severity quantified : No pain present Keturah Phillips MA - 12/06/2024 8:43 EST Infection Screening Travel outside US within past 21 days : No Positive COVID test in the last 10 days? : No Exposure to and/or close contact with a person who has a laboratory-confirmed COVID test within the last 48 hours. : No Keturah Phillips MA - 12/06/2024 8:40 EST Depression Screening Is patient currently : None of the Below Feeling Down, Depressed, Hopeless : Not at all Little Interest - Pleasure in Activities : Not at all Initial Depression Screen Score : 0 Depression Screening Score 0 : No Keturah Phillips MA - 12/06/2024 8:40 EST Falls Risk Assessment Is the patient ambulatory (mobile) : Yes Have you had 2 or more falls in the past year : No Have you had a fall within the past year that has caused an injury : No Patient screen for fall risk : no falls in last year OR 1 fall with no injury in last year Keturah Phillips MA - 12/06/2024 8:40 EST Normal [facility] Phone Msgon 10-20-2024 Phone Msg - From: Amber Guardado Sent: 10/20/2024 09:24:20 EST Subject: RESCHEDULE Caller Name: TERRIE MARLYS; Caller Number: H L/V/M TO RESCHEDULE HER ANNUAL Normal [facility] CNOVon 09-16-2023 CNOV Office Visit (RAJEEVNA ) -- MARLYS FALCON Daron ([id number]) 1970 F Date Time Provider Department 09/16/23 3:30 PM YONI CROCKETT During your visit today, we recorded the following information about you: Yoni Crockett MD 10/12/2023 12:06 PM Signed REASON FOR VISIT / CHIEF COMPLAINT CHIEF COMPLAINT: Marlys Falcon is a 53 year old female who presents today for follow up office visit. Patient presents with: Right Lower Leg - Follow Up HISTORY OF PRESENT ILLNESS (HPI) PAIN EVALUATION 09/16/2023 3621 Pain Level: 0 Pain Location: Leg-Right Duration Amount of Time: 3 Duration Units: Weeks Intervention/Comfort measure: -- boot Here for follow-up of her right calf pain. She had been taking the meloxicam walking with a heel wedge and cam walker. She reports that her pain has significantly improved Any new injury, since being seen last: No Is there any overall improvement in your condition? Yes, Does anything make it worse?: Yes, prolonged standing, ascending/descending steps Does anything make it better?: Yes, immobilization, anti-inflammatory agent REVIEW OF SYMPTOMS: Integumentary: Any recent skin changes or rashes? No Neurologic: Any numbness or tingling in the LOCAL AREA? No Endocrine: Any diagnosis of diabetes? No Hematologic: Any recent bleeding episodes? No ALLERGIES ALLERGIES No Known Allergies PAST MEDICAL HISTORY PAST MEDICAL HISTORY Diagnosis Date Hypertension No past surgical history on file. PHYSICAL EXAMINATION Vitals: [facility] 01/07/2019 Body Habitus:no acute distress and alert and oriented Orientation: Normal: Oriented to person, place and time Psych: normal Sensation: sensation to light touch is grossly normal bilaterally Skin: Color, texture, turgor normal. No rashes or lesions Swelling: no swelling noted Stance: normal cervical posture, shoulder alignment, and no joint deformities or swelling noted Ortho Exam Right lower leg clinically well aligned with minimal swelling No tenderness to palpation over the gastrocnemius muscle or Achilles tendon Bergman squeeze test negative No palpable defects over the tendon Right ankle dorsiflexion 10 degrees/plantarflexion 30 degrees Imaging : None today Proceedures : None today Assessment: Symptomatically improved Achilles tendinitis/gastroc strain Plan: 1. Continue weightbearing as tolerated 2. Begin cord stretching exercises as discussed 3. Follow-up for repeat clinical evaluation as needed Yoni Crockett M.D. Department of Orthopaedic Surgery [facility] Allergies As of Date: 09/16/2023 (No Known Allergies) Date Reviewed: 09/16/2023 Reviewed by: Janet Rosario - Fully Assessed Reason for Visit: Follow Up [171] Primary Visit Diagnosis:Achilles tendinitis of right lower extremity [M76.61] Prescriptions as of 10/12/2023 - meloxicam (MOBIC) 7.5 mg tablet Take 1 tablet by mouth once daily. - ibuprofen (MOTRIN) 600 mg tablet Take 1 tablet by mouth every 6 hours as needed for pain. - lisinopril-hydrochlorothia zide (PRINZIDE,ZESTORETIC) 20-12.5 mg per tablet - medroxyPROGESTERone (PROVERA, CYCRIN) 10 mg tablet Problem List As Of Date: 09/16/2023 (None) Letter Text Encounter Status:Closed by YONI CROCKETT on 10/12/23 [facility] CNOVon 08-26-2023 CNOV Office Visit (ORMDNA ) -- MARLYS FALCON ([id number]) 1970 F Date Time Provider Department 08/26/23 2:15 PM YONI CROCKETT During your visit today, we recorded the following information about you: Yoni Crockett MD 09/21/2023 9:04 PM Signed DEPARTMENT OF ORTHOPAEDICS HISTORY OF PRESENT ILLNESS: This is a pleasant 52 year old female, who presents today with a chief complaint of right calf pain. She complains of sharp and aching pain about the posterior aspect of approximately 4 days duration. This pain is constant. She denies trauma. She complains that the pain is 5/10 at it's very worst. She denies nocturnal pain. The pain is exacerbated by walking and prolonged standing. Previous treatments have included none. She denies proximal radiation. She denies distal radiation. She denies numbness, tingling, or electric shocks. She denies popping, clicking, catching, locking, grinding, instability, buckling, or giving way. The patient's walking tolerance is minimal before resting. She reports swelling and/or warmth. PAST MEDICAL HISTORY Diagnosis Date Hypertension No past surgical history on file. Current Outpatient Medications Medication Sig Dispense Refill ibuprofen (MOTRIN) 600 mg tablet Take 1 tablet by mouth every 6 hours as needed for pain. 30 tablet 0 lisinopril-hydrochlorothia zide (PRINZIDE,ZESTORETIC) 20-12.5 mg per tablet medroxyPROGESTERone (PROVERA, CYCRIN) 10 mg tablet meloxicam (MOBIC) 7.5 mg tablet Take 1 tablet by mouth once daily. (Patient not taking: Reported on 09/16/2023) 30 tablet 2 No current facility-administered medications for this visit. ALLERGIES No Known Allergies FAMILY HISTORY Problem Relation Age of Onset Diabetes Father Heart Father Diabetes Mother Heart Mother Cancer Maternal Grandmother Heart Maternal Grandmother Cancer Maternal Grandfather Heart Maternal Grandfather Social History Tobacco Use Smoking status: Never Smokeless tobacco: Never Substance Use Topics Alcohol use: Not Currently Comment: rare Drug use: Never Occupation: [employer] Activity level: recreational, sport/activity: none REVIEW OF SYSTEMS: GENERAL: negative for malaise, significant weight loss, night sweats and fever HEENT: No changes in hearing or vision, no nose bleeds or other nasal problems., No trouble swallowing RESPIRATORY: Negative for cough, wheezing and shortness of breath CARDIOVASCULAR: Negative for chest pain, leg swelling, palpitations, orthopnea GI: Negative for abdominal discomfort, hematochezia, melena, hematemesis, change in bowel habits, diarrhea, constipation, nausea or vomiting. MUSCULOSKELETAL: See HPI. PSYCH: Negative for sleep disturbance, mood disorder and recent psychosocial stressors. HEMATOLOGY Negative for prolonged bleeding, bruising easily, and swollen nodes. ENDOCRINE: Negative for cold or heat intolerance, polyuria, polydipsia and goiter. NEURO: negative for lightheadedness, dizziness, tremor, gait imbalance, syncope and seizures. RADIOGRAPHS: Last XR Tibia AND Fibula - Impression Only XR TIBIA FIBULA 2V AP/LAT RIGHT Exam End: 08/23/2023 12:47 PM (Final result) Impression: IMPRESSION: No acute osseous abnormality. RIGHT knee osteoarthritis. Military Science Teacher: QUINCY ... OTHER STUDIES: Ultrasound right leg-Negative study for proximal DVT in the right lower extremity. Negative study for calf DVT in the right lower extremity. Negative study for superficial thrombophlebitis in the imaged segments of the right lower extremity. PHYSICAL EXAM: LMP 01/07/2019 General: Appears stated age, well built, in no apparent distress. Psychiatric: Mood and affect appropriate. Alert and oriented x3. Musculoskeletal Exam: Gait and Station antalgic: right. RIGHT FOOT AND ANKLE EXAM: Inspection: No evidence of eythema, warmth, bruising, abrasions, scars, swelling, atrophy or deformity about bilateral lower extremities. No evidence of surgical incisions. Range of Motion: Dorsiflexion/Plantarflexio n 10-20 degrees. Decreased eversion, inversion, and hindfoot motion. Palpation: Tender to palpation over the gastrocnemius muscle and the patellar tendon Negative Bergman squeeze test Stability: Negative: Anterior drawer test, Talar tilt, Stress external rotation test, and Squeeze test. Negative David's, calf tenderness or palpable cords. Bilateral lower extremities show equal motion of the hips and knees. Normal strength, tone, and stability of the remainder of both lower extremities distally. Neurologic Exam: Intact sensation and reflexes in both lower extremities. Vascular: 2+ pedal pulses of both lower extremities. PROCEDURE: Not applicable IMPRESSION: 1. right Achilles tendonitis and Gastroc sprain/strain. PLAN: 1. Medication: Mobic. 2. Test(s)/Imaging/Referral(s ) (more content not included)... [facility] HNO ID: [id number] Author: Afsaneh Rodríguez RDMS Service: ? Author Type: Counter Maker Type: Allied Health Filed: 08/23/2023 1:40 PM Note Text: Radiology Service Progress Note PATIENT NAME: Marlys Falcon DATE OF SERVICE: August 23, 2023 TIME: 1:40 PM PATIENT IDENTITY VERIFICATION COMPLETED USING TWO (2) IDENTIFIERS: Name and Date of confirmed by patient verbally. FALL SCREENING: Has the patient had 2 falls in the last year or 1 fall with injury or currently using an Ambulatory Assistive Device (Walker, Cane, Wheelchair, Crutches, etc.)? Emergency Room Patient: Screened in ED PATIENT GENDER DATA: Female. status: : No status: NO. PATIENT RELEVANT IMPLANT DATA REVIEWED: Not Applicable RADIOLOGY DEPARTMENT: Ultrasound PERIPHERAL IV DATA: Not applicable SIGNED BY: Afsaneh Rodríguez RDMS August 23, 2023 1:40 PM [facility] ED NOTEon 08-23-2023 ED NOTE HNO ID: [id number] Author: Elizabeth Vasquez RN Service: ? Author Type: Registered Nurse Type: ED Notes Filed: 08/23/2023 2:38 PM Note Text: Discussed discharge paperwork with patient. Pt understands need to follow up with pcp and fill prescriptions. Pt educated on the signs and symptoms that warrant return to the er and how to manage symptoms at home. Pt questions answered to the best of my ability and patient is leaving in stable and improved condition. Pt ambulates with steady gait to lobby home with even and unlabored respirations. [facility] ED NOTE HNO ID: [id number] Author: Isabell Salazar RN Service: Nursing Author Type: Registered Nurse Type: ED Notes Filed: 08/23/2023 1:03 PM Note Text: Report given to JORGE ALBERTO Johnson and care transferred at this time. [facility] ED NOTE HNO ID: [id number] Author: Isabell Salazar RN Service: Nursing Author Type: Registered Nurse Type: ED Notes Filed: 08/23/2023 12:08 PM Note Text: Patient to ambulatory to Ed with c/o right leg pain that started yesterday morning. Patient denies injury. Pain is worse with ambulation. [facility] ED PROV NOTEon 08-23-2023 ED PROV NOTE HNO ID: [id number] Author: Julito Coronado III, MD Service: ? Author Type: Physician Type: ED Provider Notes Filed: 08/23/2023 2:05 PM Note Text: ED Provider Note Patient Name: Marlys Falcon : 1970 SERVICE DATE: 08/23/23 History Patient presents with: Leg Pain: right This is a 52-year-old female that presents to the emergency department with complaint of right leg pain. She states that started yesterday morning she denies any injury or fall. She denies prior history of DVT or pulmonary embolism. PAST MEDICAL HISTORY Diagnosis Date Hypertension No past surgical history on file. FAMILY HISTORY Problem Relation Age of Onset Diabetes Father Heart Father Diabetes Mother Heart Mother Cancer Maternal Grandmother Heart Maternal Grandmother Cancer Maternal Grandfather Heart Maternal Grandfather Social History Tobacco Use Smoking status: Never Smokeless tobacco: Never Substance and Sexual Activity Alcohol use: Not Currently Comment: rare Drug use: Never Sexual activity: Not on file ALLERGIES No Known Allergies Review of Systems Constitutional: Negative for fever. Eyes: Negative for discharge. Respiratory: Negative for chest tightness. Cardiovascular: Negative for chest pain. Musculoskeletal: Negative for arthralgias. Skin: Negative for rash. Neurological: Negative for dizziness. Psychiatric/Behavioral: Negative for agitation. Physical Exam Vitals [08/23/23 1205] BP Pulse Temp Temp src Resp SpO2 Weight Height 169/97 74 36.7 ?C (98 ?F) Oral 16 99 % 129.3 kg (285 lb) 1.651 m (5' 5) Physical Exam Vitals and nursing note reviewed. HENT: Head: Normocephalic. Nose: Nose normal. Pulmonary: Effort: No respiratory distress. Musculoskeletal: General: No deformity. Right ankle: Right Achilles Tendon: Normal. No tenderness or defects. Bergman's test negative. Comments: Patient has right calf tenderness Skin: Findings: No rash. Neurological: General: No focal deficit present. Mental Status: She is alert. Psychiatric: Mood and Affect: Mood normal. Diagnostic Testing ED Labs Ordered and Reviewed - No data to display Procedures ED Course / Clinical Impression Clinical Impressions as of 08/23/23 1404 Right leg pain Strain of right calf muscle MDM / Disposition / Plan Ultrasound of the right leg is negative for DVT and x-ray was also ordered which reveals right knee osteoarthritis, no acute osseous abnormalities noted. Differential Diagnoses - Right calf pain - DVT right leg is less likely for the following reason(s): No sign of DVT on ultrasound Re-evaluation Patient has pain in her right calf she has an intact Achilles tendon to suspect possible inflammation possible tendinitis in the right leg versus right calf strain. She will be discharged home we will follow-up with orthopedics will take NSAIDs. Julito Coronado MD Disposition The patient was discharged. SIGNATURE: MD IVONNE Syed STEPHEN F 08/23/[address] [facility] US DVT LOWER RTon 08-23-2023 US DVT LOWER RT * * *Final Report* * * DATE OF EXAM: Aug 23 2023 1:39PM STEFANY 1007 - US DVT LOWER RT / PROCEDURE REASON: Leg deep vein thrombosis (DVT) suspected * * * * Physician Interpretation * * * * EXAMINATION: RIGHT LOWER EXTREMITY DEEP VENOUS ULTRASOUND WITH DOPPLER IMAGING CLINICAL HISTORY: 52 years old Female with Leg deep vein thrombosis (DVT) suspected. Right leg pain. TECHNIQUE: Grayscale with compression maneuvers, color Doppler and spectral Doppler imaging of the right proximal deep veins was performed. Grayscale with compression maneuvers of the peroneal and posterior tibial veins was performed. The right great and small saphenous veins were evaluated at their insertion to the deep system. The contralateral common femoral vein was imaged for comparison. Images were obtained and stored in a permanent archive. MQ: [id number] COMPARISON: None RESULT: RIGHT LOWER EXTREMITY PROXIMAL DEEP VEINS Distal External Iliac, Common Femoral and proximal Profunda Veins: Compression: Normal Doppler: Normal, spontaneous respirophasic flow. Normal response to augmentation. Femoral vein: Compression: Normal Doppler: Normal, spontaneous flow. Normal response to augmentation. Popliteal vein: Compression: Normal Doppler: Normal, spontaneous flow. Normal response to augmentation. CALF DEEP VEINS Peroneal veins: Normal compression. Posterior tibial veins: Normal compression. Gastrocnemius and Soleal veins: Not imaged. SUPERFICIAL VEINS Great saphenous: Patent and compressible at insertion into common femoral vein; not otherwise assessed. Small Saphenous: Patent by color Doppler in the proximal calf, not otherwise assessed. LEFT LOWER EXTREMITY (FOR COMPARISON) Common Femoral Vein: Compression: Normal Doppler: Normal, spontaneous respirophasic flow. Normal response to augmentation. IMPRESSION: Negative study for proximal DVT in the right lower extremity. Negative study for calf DVT in the right lower extremity. Negative study for superficial thrombophlebitis in the imaged segments of the right lower extremity. Military Science Teacher: QUINCY Transcribe Date/Time: Aug 23 2023 1:50P Dictated by : DEE NELSON DO This examination was interpreted and the report reviewed and electronically signed by: DEE NELSON DO on Aug 23 2023 1:51PM EST [id number] [facility] XR TIBIA FIBULA 2V AP/LAT RT on 08-23-2023 XR TIBIA FIBULA 2V AP/LAT RT * * *Final Report* * * DATE OF EXAM: Aug 23 2023 12:47PM MDX [id number] - XR TIBIA FIBULA 2V AP/LAT RT / PROCEDURE REASON: Other * * * * Physician Interpretation * * * * EXAMINATION: XR TIBIA FIBULA 2V AP/LAT RT PATIENT/TECHNOLOGIST PROVIDED HISTORY: pain in right leg today, no known trauma CLINICAL INFORMATION: 52 years old Female with Other, pain TECHNIQUE: XR TIBIA FIBULA 2V AP/LAT RT Laterality: RIGHT Number of different views (projections): 2 COMPARISON: None. RESULT: No fracture. Tricompartmental osteophytes in the RIGHT knee with at least moderate medial compartment joint space narrowing on these nonweightbearing views. IMPRESSION: No acute osseous abnormality. RIGHT knee osteoarthritis. Military Science Teacher: QUINCY Transcribe Date/Time: Aug 23 2023 1:03P Dictated by : DEE NELSON DO This examination was interpreted and the report reviewed and electronically signed by: DEE NELSON DO on Aug 23 2023 1:06PM EST [id number] [facility] INFLUENZA A/B, COVID 2019 PC R,SYMPTOMATICon 09-12-2022 INFLUENZA A, PCR Not detected Normal Not Detected [facility] Comment on above: Result Comment: Resp iratory virus testing is performed routinely by PCR for Influenza A/B and RSV. If Influenza and RSV PCR are negative, testing for parainfluenza 1,2,3 viruses and adenovirus is routinely performed for oncology inpatients and intensive care unit patients at [facility] and is available on request on other patients by calling Laboratory Client Services at [phone]. Not Detected results do not preclude Influenza A/B or RSV infections since the adequacy of sample collection or low viral burden may impact the clinical sensitivity of this test method. Performed By: #### C OINP #### [facility] [address] [place] [address] INFLUENZA B, PCR Not detected Normal Not Detected [facility] Comment on above: Result Comment: Resp iratory virus testing is performed routinely by PCR for Influenza A/B and RSV. If Influenza and RSV PCR are negative, testing for parainfluenza 1,2,3 viruses and adenovirus is routinely performed for oncology inpatients and intensive care unit patients at [facility] and is available on request on other patients by calling Laboratory Client Services at [phone] Not Detected results do not preclude Influenza A/B or RSV infections since the adequacy of sample collection or low viral burden may impact the clinical sensitivity of this test method. . The TaqManTM SARS-CoV-2, Flu A, Flu B Multiplex Assay is a multiplex, real-time RT-PCR assay for the detection of RNA from the SARS-CoV-2, Influenza A, and Influenza B viruses. A negative result does not preclude the possibility of SARS-CoV-2, Influenza A, or Influenza B infections, and should not be used as the sole basis for patient management decision as a negative result may be caused by very low levels of infection, collection errors, or testing errors. . This test was developed and its performance characteristics were determined by the Microbiology Laboratory, Department of Pathology, [facility] [facility], [place], [place]. It has not been cleared or approved by the US Food and Drug Administration; however, FDA clearance or approval is not currently required for clinical use. This test should not be regarded as investigational or for research purposes. Performed By: #### C OINP #### [facility] [address] [place] [address] SARS-CoV-2 (COVID-19) RNA MARTIN+probe Ql (Unsp spec) Not detected Normal Not Detected [facility] Comment on above: Result Comment: . This assay is designed to detect the N, ORF1ab and/or S genes of SARS-CoV-2 via nucleic acid amplification. A Negative (NOT DETECTED) result does not preclude 2019-nCoV infection since the adequacy of sample collection and/or low viral burden may result in presence of viral nucleic acids below the clinical sensitivity of this test method. Negative (NOT DETECTED) result should not be used as the sole basis for treatment or other patient management decisions. Rather negative results should be combined with clinical observations, patient history, and epidemiological information to make patient management decisions. Fact sheet for providers: https://www.fda.gov/media/967733/download Fact sheet for patients: https://www.fda.gov/media/400960/download This test has received FDA Emergency Use Authorization (EUA) and has been verified by [facility] ([facility]). This test is only authorized for the duration of time that circumstances exist to justify the authorization of the emergency use of in vitro diagnostic tests for the detection of SARS-CoV-2 virus and/or diagnosis of COVID-19 infection under section 564(b)(1) of the Act, 21 U.S.C. 360bbb-3(b)(1), unless the authorization is terminated or revoked sooner. [facility] is certified under CLIA-88 as qualified to perform high complexity testing. Testing is performed in the [facility] laboratories [place] [address] [place] [address]. Performed By: #### C OINP #### [address] [place] [address] CHEST 2 VIEW PA AND LATon CHEST 2 VIEW PA AND LAT Patient Name: MARLYS FALCON STUDY: TH CHEST 2 VIEW PA AND LAT; 09/11/2022 12:54 pm INDICATION: 2 days of dyspnea on exertion R06.00: Dyspnea. COMPARISON: None. ACCESSION NUMBER(S): [id number] ORDERING CLINICIAN: KYLE MCDONALD FINDINGS: CARDIOMEDIASTINAL SILHOUETTE: Cardiomediastinal silhouette is normal in size and configuration. LUNGS: Bibasilar mild linear atelectasis or scarring is seen. No focal consolidation. No pleural effusion or pneumothorax. ABDOMEN: No remarkable upper abdominal findings. BONES: No acute osseous changes. IMPRESSION: 1. Bibasilar mild linear atelectasis or scarring. No focal consolidation. Electronically signed by: SLY SIMON MD Normal [facility] INFLUENZA A/B, COVID 2019 PC R,SYMPTOMATICon 09-11-2022 Lab Specimen Source Nasal, Nasopharyngeal Normal [facility] Comment on above: Performed By: #### C OINP #### [address] [place] [address] INFLUENZA A/B, COVID 2019 PCR,SYMPTOMATIC Not detected See Below [facility] Work Phone: Comment on above: Reference Range: Not Detected.This assay is designed to detect the N, ORF1ab and/or S genes of SARS-CoV-2 via nucleic acid amplification. A Negative (NOT DETECTED) result does not preclude 2019-nCoV infection since the adequacy of sample collection and/or low viral burden may result in presence of viral nucleic acids below the clinical sensitivity of this test method. Negative (NOT DETECTED) result should not be used as the sole basis for treatment or other patient management decisions. Rather negative results should be combined with clinical observations, patient history, and epidemiological information to make patient management decisions.Fact sheet for providers: https://www.fda.gov/media/888283/downloadFact sheet for patients: https://www.fda.gov/media/016680/downloadThis test has received FDA Emergency Use Authorization (EUA) and has been verified by [facility] ([facility]). This test is only authorized for the duration of time that circumstances exist to justify the authorization of the emergency use of in vitro diagnostic tests for the detection of SARS-CoV-2 virus and/or diagnosis of COVID-19 infection under section 564(b)(1) of the Act, 21 U.S.C. 360bbb-3(b)(1), unless the authorization is terminated or revoked sooner. [facility] is certified under CLIA-88 as qualified to perform high complexity testing. Testing is performed in the [facility] laboratories located at [address] [place] [address]. Reference Range: Not Detected Respiratory virus testing is performed routinely by PCR for Influenza A/B and RSV. If Influenza and RSV PCR are negative, testing for parainfluenza 1,2,3 viruses and adenovirus is routinely performed for oncology inpatients and intensive care unit patients at [facility] and is available on request on other patients by calling Laboratory Client Services at [phone] Not Detected results do not preclude Influenza A/B or RSV infections since the adequacy of sample collection or low viral burden may impact the clinical sensitivity of this test method..The TaqManTM SARS-CoV-2, Flu A, Flu B Multiplex Assay is a multiplex, real-time RT-PCR assay for the detection of RNA from the SARS-CoV-2, Influenza A, and Influenza B viruses. A negative result does not preclude the possibility of SARS-CoV-2, Influenza A, or Influenza B infections, and should not be used as the sole basis for patient management decision as a negative result may be caused by very low levels of infection, collection errors, or testing errors. .This test was developed and its performance characteristics were determined by the Microbiology Laboratory, Department of Pathology, [facility], [place], [place]. It has not been cleared or approved by the US Food and Drug Administration; however, FDA clearance or approval is not currently required for clinical use. This test should not be regarded as investigational or for research purposes. SOURCE: Nasal, Nasop haryngealReference Range: Not Detected Respiratory virus testing is performed routinely by PCR for Influenza A/B and RSV. If Influenza and RSV PCR are negative, testing for parainfluenza 1,2,3 viruses and adenovirus is routinely performed for oncology inpatients and intensive care unit patients at [facility] and is available on request on other patients by calling Laboratory Client Services at [phone]. Not Detected results do not preclude Influenza A/B or RSV infections since the adequacy of sample collection or low viral burden may impact the clinical sensitivity of this test method. IO glucose, blood, finger st ick via hand held monitoron 09-11-2022 Glucose [Mass/Vol] 102 mg/dL [facility] [place] Work Phone: Office Visit (Urgent Care)on 09-11-2022 Follow-up visit Diagnoses/Problems Assessed Cough (786.2) (R05.9) Dyspnea (786.09) (R06.00) Pressure in chest (786.59) (R07.89) Polydipsia (783.5) (R63.1) Orders Cough INFLUENZA A/B, COVID 2019 PCR,SYMPTOMATIC; Status:In Progress - Specimen/Data Collected; Done: 11Sep2022 Perform:Lab Services - Office to Draw (Non-Blood Test); Due:10Dec2022;Ordered; For:Cough; Ordered By:Kyle Mcdonald; Dyspnea Start: Ventolin HFA 108 (90 Base) MCG/ACT Inhalation Aerosol Solution (Albuterol Sulfate HFA); INHALE 2 PUFFS EVERY 4-6 HOURS, SPACED 60 SECONDS APART Rx By: Kyle Mcdonald; Dispense: 0 Days ; #:1 X 18 GM Inhaler; Refill: 0;For: Dyspnea; DORYS = N; Sent To: [facility],; Msg to Pharmacy: dispense with adult spacer Xray Chest 2 View PA + Lateral; Status:Resulted - Preliminary; Done: 11Sep2022 12:54PM Due:10Dec2022;Ordered; Stat; For:Dyspnea; Ordered By:Kyle Mcdonald; Radiologist to Determine Optimal Study : Y What are the patient's signs and symptoms? : 2 days of dyspnea on exertion Polydipsia IO glucose, blood, finger stick via hand held monitor; Status:Resulted - Requires Verification,Retrospective Authorization; Done: 11Sep2022 12:39PM Performed:In Office; Due:[id number]; Last Updated By:Mireille Argueta; 09/11/2022 12:39:21 PM;Ordered; For:Polydipsia; Ordered By:Kyle Mcdonald; Pressure in chest IO EKG Electrocardiogram- 12 Lead; Status:Complete - Retrospective Authorization; Done: 11Sep2022 Perform:In Office; Due:[id number]; Last Updated By:Mireille Argueta; 09/11/2022 12:38:02 PM;Ordered; For:Pressure in chest; Ordered By:Kyle Mcdonald; Provider Impressions 1. Acute chest congestion wheezing and dyspnea- relatively benign work-up. Normal prelim chest x-ray, EKG normal, fall walking pulse ox normal, random blood sugar normal. COVID and flu test still pending. Advised supportive care. Trial of metered-dose inhaler, follow-up with PCP if not improving. Given strict ER precautions Chief Complaint Chief Complaints Cold Symptoms History of Present Illness 51-year-old female here with 2 days of acute chest heaviness, shortness of breath, possible wheezing and some dizziness. No fever or chills, no runny or stuffy nose. No sore throat, mild earache. Increased thirst. Mild cough. NyQuil with no relief. History of remote seasonal allergies but no reactive airway disease. 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 Ibuprofen 800 MG Oral TabletTAKE 1 TABLET 3 TIMES DAILY NEEDED. Ibuprofen 800 MG Oral TabletTAKE 1 TABLET 3 times daily Lisinopril 5 MG Oral TabletTake 1 tablet daily valACYclovir HCl - 1 GM Oral TabletTAKE 1 TABLET 3 TIMES DAILY. Vitals Vital Signs Recorded: 11Sep2022 11:58AM Kdjaxxycwpi69.3 F Heart Rate72 Utipcytpcma99 Pwhnttii308 Dxsfotshs66 Height5 ft 5 in Xpqstd148 lb 2.72 oz BMI Fascyggtnj46.29 kg/m2 BSA Calculated2.3 Tobacco Useb) No PHQ-2 #1. Over the last 2 weeks have you felt down, depressed or hopeless? (If yes, answer PHQ-9 below)No PHQ-2 #2. Over the last 2 weeks have you felt little interest or pleasure in doing things? (If yes, answer PHQ-9 below)No Falls Screening (Age 18+)a) No falls within the last year O2 Hfqihuevec54 Pain Scale7 Physical Exam General- No apparent distress, mildly dyspnic Cardiovascular- regular rate and rhythm, no gallops, murmurs or rubs Lungs- clear to auscultation bilaterally, no wheezing or rhonchi ENT- Normal bilateral tympanic membranes, normal pharynx Extremity- no clubbing cyanosis or edema Results/Data IO glucose, blood, finger stick via hand held [id number] 12:39PMKyle Mcdonald Test NameResultFlagReference IO Fingerstick / Blood [id number] Signatures Electronically signed by : Kyle Mcdonald MD; Sep 11 2022 1:04PM EST (Author) Normal [facility] 09-11-2022 XR Chest 2 Views Normal [facility] Work Phone: Tobacco Screening.on 022 Adult depression screening assessment No [facility] Work Phone: Fall risk assessment a) No falls within the last year [facility] Work Phone: Tobacco use status CP b) No [facility] Work Phone: Absolute lymphocyte counton 04-16-2022 Lymphocytes Auto (Unsp spec) [#/Vol] 1.43 10*3/uL 0.83-4.51 [facility] Work Phone: Basophil percentageon 2021 Basophils/100 WBC (Bld) 0.9 % 0-1 [facility] Work Phone: Bilirubin [Mass/Vol] 0.40 mg/dL 0.20-1.00 [facility] Work Phone: Comment on above: For patients on eltr ombopag therapy, use of Dimension [place] TBIL is not recommended. Chloride [Moles/Vol] 101 mmol/L 98-107 [facility] Work Phone: Cholesterol [Mass/Vol] 196 mg/dL <200 [facility] Work Phone: [phone] Comment on above: <200 mg/dL Desirable 200-240 mg/dL Borderline >240 mg/dL High Risk Eosinophils/100 WBC (Bld) 3.2 % 0-5 [facility] Work Phone: Glucose [Mass/Vol] 93 mg/dL 74-106 [facility] Work Phone: Neutrophils (Bld) [#/Vol] 4.3 10*3/uL 2.0-7.7 [facility] Work Phone: Neutrophils/100 WBC (Bld) 67.4 % 47-70 [facility] Work Phone: Potassium [Moles/Vol] 3.6 mmol/L 3.5-5.1 [facility] Work Phone: Protein [Mass/Vol] 7.6 g/dL 6.4-8.2 [facility] Work Phone: Sodium [Moles/Vol] 136 mmol/L 136-145 [facility] Work Phone: Triglyceride [Mass/Vol] 103 mg/dL [facility] Work Phone: [phone] Comment on above: The drugs N-Acetylcy steine and Metamizole may falsely depress this assay.Serum Triglycerides Reference Interval Normal <150 mg/dL Borderline high 150 - 199 mg/dL High 200 - 499 mg/dL Very High > or = 500 mg/dL WBC (Bld) [#/Vol] 6.3 10*3/uL 4.4-11.0 [facility] Work Phone: Blood erythrocytes count (nu mber/volume)on 04-16-2022 RBC (Bld) [#/Vol] 4.66 10*6/uL 4.2-5.4 [facility]: Blood hemoglobin measurement (mass/volume)on 04-16-2022 Hemoglobin (Bld) [Mass/Vol] 14.3 g/dL 12.0-15.0 [facility] Work Phone: Blood lymphocytes/100 leukoc yteson 04-16-2022 Lymphocytes/100 WBC (Bld) 22.6 % 19-41 [facility] Work Phone: Blood monocytes/100 leukocyt eson 04-16-2022 Monocytes/100 WBC (Bld) 5.7 % 0-10 [facility] Work Phone: Blood platelet mean volumeon 04-16-2022 Platelet mean volume (Bld) [Entitic vol] 9.3 fL 6.2-12.0 [facility] Work Phone: Determination of erythrocyte mean corpuscular volume (MCV)on 04-16-2022 MCV (RBC) [Entitic vol] 89.9 fL 81-99 [facility] Work Phone: Hematocrit Auto (Bld) [Volum e fraction]on 04-16-2022 Hematocrit (Bld) [Volume fraction] 41.9 % 37-47 [facility] Work Phone: Laboratory - Chemistry and C hemistry - challengeon 04-16-2022 ALP [Catalytic activity/Vol] 73 U/L 45-117 [facility] Work Phone: ALT [Catalytic activity/Vol] 22 U/L 13-56 [facility] Work Phone: CO2 [Moles/Vol] 27.0 mmol/L 21.0-32.0 [facility] Work Phone: Globulin (S) [Mass/Vol] 3.6 g/dL 2.2-4.2 [facility] Work Phone: Urea nitrogen/Creatinin e [Mass ratio] 22.3 mg/mg 10-20 [facility] Work Phone: Laboratory - Hematology and Cell countson 04-16-2022 Erythrocyte distribution width (RBC) [Entitic vol] 43.3 fL 35.1-43.9 [facility] Work Phone: Erythrocyte distribution width (RBC) [Ratio] 13.2 % 11.6-14.6 [facility] Work Phone: Immature granulocytes/100 WBC (Bld) 0.200 % 0.0-0.9 [facility] Work Phone: Comment on above: IG% - Immature Granu locytes (promyelocytes, myelocytes and metamyelocytes) > 1% indicates that a LEFT SHIFT is Present. MCH (RBC) [Entitic mass] 30.7 pg 27.0-32.0 [facility] Work Phone: Nucleated RBC/100 WBC (Bld) [Ratio] 0 % 0-5 [facility] Work Phone: MCHC Auto (RBC) [Mass/Vol]on 04-16-2022 MCHC (RBC) [Mass/Vol] 34.1 g/dL 32-36 [facility] Work Phone: No Panel Informationon 04-16 Estimated GFR (MDRD) Amer 80 mL/min >60 [facility] Work Phone: Comment on above: GFR Calc Estimated GFR (MDRD) Non-Af Amer 66 mL/min >60 [facility] Work Phone: Comment on above: Non- GFR Calc Platelets bldon 04-16-2022 Platelets (Bld) [#/Vol] 282 10*3/uL 150-450 [facility] Work Phone: Serum or plasma albumin ge urement (mass/volume)on 04-16-2022 Albumin [Mass/Vol] 4.0 g/dL 3.2-5.0 [facility] Work Phone: Serum or plasma albumin/glob ulin mass ratioon 04-16-2022 Albumin/Globulin [Mass ratio] 1.1 {ratio} 0.9-2.4 [facility] Work Phone: Serum or plasma calcium ge urement (mass/volume)on 04-16-2022 Calcium [Mass/Vol] 9.4 mg/dL 8.5-10.1 [facility] Work Phone: Serum or plasma cholesterol in HDL measurement (mass/volume)on 04-16-2022 Cholesterol in HDL [Mass/Vol] 55 mg/dL [facility] Work Phone: Comment on above: The drugs N-Acetylcy steine and Metamizole may falsely depress this assay. Reference Range HDL <40 mg/dL Low HDL Cholesterol HDL >or= 60 mg/dL High HDL Cholesterol Serum or plasma cholesterol in VLDL measurement (mass/volume)on 04-16-2022 Cholesterol in VLDL [Mass/Vol] 21 mg/dL 5-40 [facility] Work Phone: Serum or plasma creatinine m easurement (mass/volume)on 04-16-2022 Creatinine [Mass/Vol] 0.94 mg/dL 0.55-1.02 [facility] Work Phone: Comment on above: The validity of the calculated GFR & GFRAA in patients over 70 years has not been determined. Clinical correlation is essential. Serum or plasma low density lipoprotein (LDL) cholesterol measurement (mass/volume)on 04-16-2022 Cholesterol in LDL [Mass/Vol] 120 mg/dL 0-130 [facility] Work Phone: Serum or plasma urea nitroge n measurement (mass/volume)on 04-16-2022 Urea nitrogen [Mass/Vol] 21 mg/dL 7-18 [facility] Work Phone: Thin prep Papanicolaou smear with manual screeningon 04-16-2022 Thin prep Papanicolaou smear with manual screening 19 U/L 15-37 [facility] Work Phone: Thin prep Papanicolaou smear with manual screening 8 5-15 [facility] Work Phone: Tobacco Screening.on 021 Tobacco use status CPHS b) No [facility] Work Phone: Comprehensive Panelon 2018 Anion gap molar conc 16 mmol/L Normal 8-20 [facility] Comment on above: Performed By: #### L P14 #### [facility] [address] [place] [address] Chloride molar conc 98 mmol/L Normal 98-109 [facility] Comment on above: Result Comment: Test ing performed on an Vo i-STAT. Performed By: #### L P14 #### [place] [address] Potassium molar conc 3.5 mmol/L Normal 3.5-4.9 [facility] Comment on above: Result Comment: Test ing performed on an Vo i-STAT. Performed By: #### L P14 #### [place] [address] Sodium molar conc 136 mmol/L Low 138-146 [facility] Comment on above: Result Comment: Test ing performed on an Vo i-STAT. Performed By: #### L P14 #### [place] [address] Albumin mass conc 3.6 g/dL Normal 3.4-5.0 [facility] Comment on above: Performed By: #### L P14 #### [facility] [address] [place] [address] ALP enzyme act/vol 67 U/L Normal 46-116 [facility] Comment on above: Performed By: #### L P14 #### [facility] [address] [place] [address] ALT-SGPT Blood 20 U/L Normal 14-63 [facility] Comment on above: Performed By: #### L P14 #### [facility] [address] [place] [address] AST-SGOT Blood 21 U/L Normal 15-37 [facility] Comment on above: Performed By: #### L P14 #### [facility] [address] [place] [address] Bilirubin Ql (U) 0.4 mg/dL Normal 0.2-1.0 [facility] Comment on above: Performed By: #### L P14 #### [facility] [address] [place] [address] Calcium mass conc 9.2 mg/dL Normal 8.5-10.1 [facility] Comment on above: Performed By: #### L P14 #### [facility] [address] [place] [address] CO2 Blood 26 mEq/L Normal 21-32 [facility] Comment on above: Performed By: #### L P14 #### [facility] [address] [place] [address] Creatinine mass conc 0.85 mg/dL Normal 0.51-0.95 [facility] Comment on above: Performed By: #### L P14 #### [facility] [address] [place] [address] Glucose mass conc 85 mg/dL Normal 70-99 [facility] Comment on above: Performed By: #### L P14 #### [facility] [address] [place] [address] Protein mass conc 7.5 g/dL Normal 6.4-8.2 [facility] Comment on above: Performed By: #### L P14 #### [facility] [address] [place] [address] Urea nitrogen mass conc 19 mg/dL Normal 7-25 [facility] Comment on above: Performed By: #### L P14 #### [facility] [address] [place] [address] Urea nitrogen/Creatinin e mass ratio 22 mg/mg High 10-20 [facility] Comment on above: Performed By: #### L P14 #### [facility] [address] [place] [address] D-Dimer Quantitativeon 01-14 D-Dimer Quantitative 907 ng/mL(FEU) Critically high <450 [facility] Comment on above: Result Comment: The D-Dimer assay can be used to exclude pulmonary embolism (PE) and deep vein thrombosis (DVT) in conjunction with a low pre-test probability. For patients with a suspected DVT, a D-Dimer level below 500 ng/mL FEU has a negative predictive value of >=99.0%, a sensitivity of >=97.0%, and a specificity of >=35.8%. For patients with a suspected PE, a D-Dimer level below 500 ng/mL FEU has a negative predictive value of >=98.6%, a sensitivity of >=96.6%, and a specificity of >=38.9%. Performed By: #### L DMR #### [place] [address] Hemogram/Diffon 01-14-2019 Abs. Baso 0.03 thou/cmm Normal 0.00-0.08 [facility] Comment on above: Performed By: #### L CBCD #### [place] [address] Abs. [place] 0.43 thou/cmm Normal 0.20-1.00 [facility] Comment on above: Performed By: #### L CBCD #### [place] [address] Abs. Neut (ANC) 3.40 thou/cmm Normal 3.00-5.67 [facility] Comment on above: Performed By: #### L CBCD #### [place] [address] Basophils/100 WBC (Bld) 0.6 % Normal [facility] Comment on above: Performed By: #### L CBCD #### [place] [address] Eosinophils #/vol (Bld) 0.10 thou/cmm Normal 0.00-0.41 [facility] Comment on above: Performed By: #### L CBCD #### [place] [address] [place] [address] Eosinophils/100 WBC (Bld) 2.1 % Normal [facility] Comment on above: Performed By: #### L CBCD #### [facility] [address] [place] [address] Erythrocyte distribution width Ratio (RBC) 16.8 % High 11.5-15.9 [facility] Comment on above: Performed By: #### L CBCD #### [facility] [address] [place] [address] Hematocrit Volume Fraction (Bld) 32.1 % Low 37.0-47.0 [facility] Comment on above: Performed By: #### L CBCD #### [facility] [address] [place] [address] Hemoglobin mass conc (Bld) 10.0 g/dL Low 12.0-16.0 [facility] Comment on above: Performed By: #### L CBCD #### [place] [address] Lymphocytes #/vol (Bld) 0.94 thou/cmm Low 1.50-3.65 [facility] Comment on above: Performed By: #### L CBCD #### [place] [address] Lymphocytes/100 WBC (Bld) 19.1 % Normal [facility] Comment on above: Performed By: #### L CBCD #### [place] [address] MCH Entitic mass (RBC) 25.3 pg Low 27.0-31.0 [facility] Comment on above: Performed By: #### L CBCD #### [place] [address] MCHC mass conc (RBC) 31.2 % Low 32.0-36.0 [facility] Comment on above: Performed By: #### L CBCD #### [place] [address] MCV Entitic volume (RBC) 81.1 fL Normal 81.0-99.0 [facility] Comment on above: Performed By: #### L CBCD #### [facility] [address] [place] [address] Monocytes/100 WBC (Bld) 8.8 % Normal [facility] Comment on above: Performed By: #### L CBCD #### [facility] [address] [place] [address] Platelet mean volume Entitic volume (Bld) 8.4 fL Normal 7.1-10.5 [facility] Comment on above: Performed By: #### L CBCD #### [facility] [address] [place] [address] Platelets #/vol (Bld) 376 thou/cmm Normal 150-400 [facility] Comment on above: Performed By: #### L CBCD #### [facility] [address] [place] [address] RBC #/vol (Bld) 3.96 mil/cmm Low 4.20-5.40 [facility] Comment on above: Performed By: #### L CBCD #### [place] [address] Seg Neutrophil 69.4 % Normal [facility] [facility] Comment on above: Performed By: #### L CBCD #### [facility] [address] [place] [address] WBC #/vol (Bld) 4.9 thou/cmm Normal 4.8-10.8 [facility] Comment on above: Performed By: #### L CBCD #### [facility] [address] [place] [address] MDRD eGFRon 01-14-2019 GFR/1.73 sq M predicted among non-blacks MDRD vol rate/area (S/P/Bld) mL/min/{1.73_m2} Normal >60mL/min/1. 73m2 [facility] Comment on above: Result Comment: If t he patient is , multiply the result by 1.210. Performed By: #### L GFR #### [facility] [address] [place] [address] Troponin Ion 01-14-2019 Troponin I.cardiac mass conc ng/mL Normal <=0.07 [facility] Comment on above: Performed By: #### L TRP #### [facility] [address] [place] [address] Hemogram/Manual Diffon 08-13 Anisocytosis Ql (Bld) Slight Normal [facility] Comment on above: Performed By: #### L MCBD #### [place] [address] Hypochromasia Few Normal [facility] Comment on above: Performed By: #### L MCBD #### [place] [address] Platelets #/vol (Bld) Normal Normal [facility] Comment on above: Performed By: #### L MCBD #### [place] [address] Spherocytosis Few Normal [facility] Comment on above: Performed By: #### L MCBD #### [place] [address] Diff Type Manual Diff Normal [facility] Comment on above: Performed By: #### L MCBD #### [place] [address] Abs. Baso 0.05 thou/cmm Normal 0.00-0.08 [facility] Comment on above: Performed By: #### L MCBD #### [place] [address] Abs. [place] 0.46 thou/cmm Normal 0.20-1.00 [facility] Comment on above: Performed By: #### L MCBD #### [place] [address] Abs. Neut (ANC) 5.65 thou/cmm Normal 3.00-5.67 [facility] Comment on above: Performed By: #### L MCBD #### [place] [address] Basophils/100 WBC (Bld) 0.6 % Normal [facility] Comment on above: Performed By: #### L MCBD #### [facility] [address] [place], [place] [address] Eosinophils #/vol (Bld) 0.28 thou/cmm Normal 0.00-0.41 [facility] Comment on above: Performed By: #### L MCBD #### [facility] [address] [place], [place] [address] Eosinophils/100 WBC (Bld) 3.6 % Normal [facility] Comment on above: Performed By: #### L MCBD #### [facility] [address] [place] [address] Erythrocyte distribution width Ratio (RBC) 18.8 % High 11.5-15.9 [facility] Comment on above: Performed By: #### L MCBD #### [facility] [address] [place] [address] Hematocrit Volume Fraction (Bld) 33.1 % Low 37.0-47.0 [facility] Comment on above: Performed By: #### L MCBD #### [facility] [address] [place] [address] Hemoglobin mass conc (Bld) 10.1 g/dL Low 12.0-16.0 [facility] Comment on above: Performed By: #### L MCBD #### [facility] [address] [place] [address] Lymphocytes #/vol (Bld) 1.36 thou/cmm Low 1.50-3.65 [facility] Comment on above: Performed By: #### L MCBD #### [facility] [address] [place], [place] [address] Lymphocytes/100 WBC (Bld) 17.4 % Normal [facility] Comment on above: Performed By: #### L MCBD #### [facility] [address] [place] [address] MCH Entitic mass (RBC) 24.0 pg Low 27.0-31.0 [facility] Comment on above: Performed By: #### L MCBD #### [facility] [address] [place] [address] MCHC mass conc (RBC) 30.5 % Low 32.0-36.0 [facility] Comment on above: Performed By: #### L MCBD #### [facility] [address] [place] [address] MCV Entitic volume (RBC) 78.6 fL Low 81.0-99.0 [facility] Comment on above: Performed By: #### L MCBD #### [facility] [address] [place] [address] Monocytes/100 WBC (Bld) 5.9 % Normal [facility] Comment on above: Performed By: #### L MCBD #### [facility] [address] [place] [address] Platelet mean volume Entitic volume (Bld) 8.7 fL Normal 7.1-10.5 [facility] Comment on above: Performed By: #### L MCBD #### [place] [address] Platelets #/vol (Bld) 424 thou/cmm High 150-400 [facility] Comment on above: Performed By: #### L MCBD #### [facility] [address] [place] [address] RBC #/vol (Bld) 4.21 mil/cmm Normal 4.20-5.40 [facility] Comment on above: Performed By: #### L MCBD #### [place] [address] Seg Neutrophil 72.5 % Normal [facility] Comment on above: Performed By: #### L MCBD #### [place] [address] WBC #/vol (Bld) 7.8 thou/cmm Normal 4.8-10.8 [facility] Comment on above: Performed By: #### L MCBD #### [place] [address] US PELVIS NON-OB COMPLETEon 08-13-2018 US PELVIS NON-OB COMPLETE Performed at [facility] APPROVED BY: MARGARETH WELLS MD EXAMINATION: TRANSVAGINAL AND LIMITED TRANSABDOMINAL PELVIC ULTRASOUND CLINICAL HISTORY: Heavy clotting during menses. LMP 08/01/2018 TECHNIQUE: Sonography of the pelvis was performed by transvaginal and transabdominal (limited) techniques. Images were obtained and stored in a permanent archive. MQ: UFP_1 COMPARISON: None RESULT: Uterus size: 10.1 x 5.3 x 7.4 cm -Orientation: Anteverted -Myometrium: A 2.8 x 2.9 x 2.5 cm submucosal fibroid is seen adjacent to the endometrial canal in the mid uterine body -Endometrial echo complex: Not seen due to adjacent fibroid -Cervix: Multiple nabothian cysts Right ovary: 3.7 x 2.3 x 3.9 cm 2.9 x 2.0 x 2.6 cm simple cyst Left ovary: 3.9 x 1.9 x 2.9 cm 1.6 x 1.5 x 1.4 cm simple cyst Pelvis free fluid: None IMPRESSION: 2.9 cm submucosal uterine fibroid, endometrium not adequately visualized for measurement Small simple cyst in each ovary Normal [facility] US TRANSVAGINALon 08-13-2018 US TRANSVAGINAL Performed at [facility] APPROVED BY: [facility] MD EXAMINATION: TRANSVAGINAL AND LIMITED TRANSABDOMINAL PELVIC ULTRASOUND CLINICAL HISTORY: Heavy clotting during menses. LMP 08/01/2018 TECHNIQUE: Sonography of the pelvis was performed by transvaginal and transabdominal (limited) techniques. Images were obtained and stored in a permanent archive. MQ: UFP_1 COMPARISON: None RESULT: Uterus size: 10.1 x 5.3 x 7.4 cm -Orientation: Anteverted -Myometrium: A 2.8 x 2.9 x 2.5 cm submucosal fibroid is seen adjacent to the endometrial canal in the mid uterine body -Endometrial echo complex: Not seen due to adjacent fibroid -Cervix: Multiple nabothian cysts Right ovary: 3.7 x 2.3 x 3.9 cm 2.9 x 2.0 x 2.6 cm simple cyst Left ovary: 3.9 x 1.9 x 2.9 cm 1.6 x 1.5 x 1.4 cm simple cyst Pelvis free fluid: None IMPRESSION: 2.9 cm submucosal uterine fibroid, endometrium not adequately visualized for measurement Small simple cyst in each ovary Normal [facility] Vital Signs Date Time Vital Sign Value Performing Clinician Facility 04-11-2025 15:41-0400 Body temperature 98.4 [degF] Viktoriya Garcia PEDIATRIC ORTHODONTIST-C Work Phone: [facility] 04-11-2025 15:41-0400 Body weight 122.01 kg Viktoriya Garcia PEDIATRIC ORTHODONTIST-C Work Phone: [facility] 04-11-2025 15:41-0400 Diastolic blood pressure 75 mm[Hg] Viktoriya Garcia PEDIATRIC ORTHODONTIST-C Work Phone: [facility] 04-11-2025 15:41-0400 Heart rate 93 /min Viktoriya Garcia PEDIATRIC ORTHODONTIST-C Work Phone: [facility] 04-11-2025 15:41-0400 Respiratory rate 16 /min Viktoriya Garcia PEDIATRIC ORTHODONTIST-C Work Phone: [facility] 04-11-2025 15:41-0400 SaO2% (BldA) [Mass fraction] 97 % Viktoriya Garcia PEDIATRIC ORTHODONTIST-C Work Phone: [facility] 04-11-2025 15:41-0400 Systolic blood pressure 114 mm[Hg] Viktoriya Garcia PEDIATRIC ORTHODONTIST-C Work Phone: [facility] 03-14-2025 16:59-0400 Body height 165.1 cm Viktoriya Garcia PEDIATRIC ORTHODONTIST-C Work Phone: [facility] 03-14-2025 16:59-0400 Body mass index (BMI) [Ratio] 45.7 kg/m2 Viktoriya Garcia PEDIATRIC ORTHODONTIST-C Work Phone: [facility] 03-14-2025 16:59-0400 Body temperature 97 [degF] Viktoriya Garcia PEDIATRIC ORTHODONTIST-C Work Phone: [facility] 03-14-2025 16:59-0400 Body weight 124.73 kg Viktoriya Garcia PEDIATRIC ORTHODONTIST-C Work Phone: [facility] 03-14-2025 16:59-0400 Diastolic blood pressure 70 mm[Hg] Viktoriya Garcia PEDIATRIC ORTHODONTIST-C Work Phone: [facility] 03-14-2025 16:59-0400 Heart rate 74 /min Viktoriya Garcia PEDIATRIC ORTHODONTIST-C Work Phone: [facility] 03-14-2025 16:59-0400 Respiratory rate 18 /min Viktoriya Garcia PEDIATRIC ORTHODONTIST-C Work Phone: [facility] 03-14-2025 16:59-0400 SaO2% (BldA) [Mass fraction] 98 % Viktoriya Garcia PEDIATRIC ORTHODONTIST-C Work Phone: [facility] 03-14-2025 16:59-0400 Systolic blood pressure 110 mm[Hg] Viktoriya Garcia PEDIATRIC ORTHODONTIST-C Work Phone: [facility] 09-11-2022 11:58-0400 Body height 165.1 cm Viktoriya Garcia Work Phone: [facility] Work Phone: 09-11-2022 11:58-0400 Body mass index (BMI) [Ratio] 47.29 kg/m2 Viktoriya Garcia Work Phone: [facility] Work Phone: 09-11-2022 11:58-0400 Body surface area Derived from formula 2.3 m2 Viktoriya Garcia Work Phone: [facility] Work Phone: 09-11-2022 11:58-0400 Body temperature 97.3 [degF] Viktoriya Garcia Work Phone: [facility] Work Phone: 09-11-2022 11:58-0400 Body weight 128.9 kg Viktoriya Garcia Work Phone: [facility] Work Phone: 09-11-2022 11:58-0400 Diastolic blood pressure 81 mm[Hg] Viktoriya Garcia Work Phone: [facility] Work Phone: 09-11-2022 11:58-0400 Heart rate 72 /min Viktoriya Garcia Work Phone: [facility] Work Phone: 09-11-2022 11:58-0400 Respiratory rate 24 /min Viktoriya Garcia Work Phone: [facility] Work Phone: 09-11-2022 11:58-0400 SaO2% (BldA) [Mass fraction] 97 % Viktoriya Garcia Work Phone: [facility] Work Phone: 09-11-2022 11:58-0400 Systolic blood pressure 170 mm[Hg] Viktoriya Garcia Work Phone: [facility] Work Phone: 09-11-2022 11:58-0400 7 1 Viktoriya Garcia Work Phone: [facility] Work Phone: Comment on above: [facility] 04-16-2022 15:23-0400 Body height 165.1 cm [facility] Work Phone: 04-16-2022 15:23-0400 Body mass index (BMI) [Ratio] 44.9 kg/m2 [facility] Work Phone: 04-16-2022 15:23-0400 Body temperature 97.7 [degF] [facility] Work Phone: 04-16-2022 15:23-0400 Body weight 122.46 kg [facility] Work Phone: 04-16-2022 15:23-0400 Diastolic blood pressure 80 mm[Hg] [facility] Work Phone: 04-16-2022 15:23-0400 Heart rate 83 /min [facility] Work Phone: 04-16-2022 15:23-0400 Respiratory rate 18 /min [facility] Work Phone: 04-16-2022 15:23-0400 SaO2% (BldA) [Mass fraction] 96 % [facility] Work Phone: 04-16-2022 15:23-0400 Systolic blood pressure 117 mm[Hg] [facility] Work Phone: 08-29-2021 14:16-0400 Body height 162.56 cm Viktoriya Garcia Work Phone: [facility] Work Phone: 08-29-2021 14:16-0400 Body mass index (BMI) [Ratio] 44.63 kg/m2 Viktoriya Garcia Work Phone: [facility] Work Phone: 08-29-2021 14:16-0400 Body surface area Derived from formula 2.19 m2 Viktoriya Garcia Work Phone: [facility] Work Phone: 08-29-2021 14:16-0400 Body temperature 97.6 [degF] Viktoriyadaron Garcia Work Phone: [facility] Work Phone: 08-29-2021 14:16-0400 Body weight 117.94 kg Viktoriya Garcia Work Phone: [facility] Work Phone: 08-29-2021 14:16-0400 Diastolic blood pressure 87 mm[Hg] Viktoriya Chase Garcia Work Phone: [facility] Work Phone: 08-29-2021 14:16-0400 Heart rate 88 /min Viktoriya Garcia Work Phone: [facility] Work Phone: 08-29-2021 14:16-0400 Respiratory rate 16 /min Viktoriya Garcia Work Phone: [facility] Work Phone: 08-29-2021 14:16-0400 SaO2% (BldA) [Mass fraction] 97 % Viktoriya Garcia Work Phone: [facility] Work Phone: 08-29-2021 14:16-0400 Systolic blood pressure 128 mm[Hg] Viktoriya Garcia Work Phone: [facility] Work Phone: 08-29-2021 14:16-0400 9 1 Viktoriya Garcia Work Phone: [facility] Work Phone: Comment on above: [facility] Encounters Encounter Date Encounter Type Care Provider Facility Start: 04-11-2025 End: 04-11-2025 Patient encounter procedure Rohini MERLOS -[facility] Work Phone: Start: 04-11-2025 End: 04-11-2025 ambulatory Rohini Farmer Facility:[facility] Start: 12-06-2024 End: 12-06-2024 ambulatory IVETH HOWARD DO-FAC [facility] [place] [place] Start: 09-16-2023 End: 09-16-2023 ambulatory YONI CROCKETT Facility:[facility] Start: 09-16-2023 End: 09-16-2023 Patient encounter procedure Yoni Crockett MD Work Phone: Orthopaedics Comment on above: Achilles tendinitis of right lower extremity (Primary Dx) Start: 08-26-2023 End: 08-26-2023 ambulatory YONI CROCKETT Facility:[facility] Start: 08-26-2023 End: 08-26-2023 Patient encounter procedure Yoni Crockett MD Work Phone: Orthopaedics Comment on above: Achilles tendinitis of right lower extremity (Primary Dx) Start: 08-23-2023 End: 08-23-2023 Emergency department patient visit VIKTORIYA Chase GARCIA Facility:[facility] Start: 09-18-2022 Chart Update Viktoriya taveras Work Phone: [facility] Work Phone: Start: 09-12-2022 Chart Update Viktoriya taveras Work Phone: [facility] Work Phone: Start: 09-11-2022 ambulatory Ms. Viktoriya Orellana acility:[id number] Start: 09-11-[address] Kyle Huizar ity:[id number] Start: 09-11-2022 Office outpatient visit 25 minutes Viktoriya Garcia Work Phone: [facility] Work Phone: Start: 04-16-2022 End: 04-16-2022 Patient encounter procedure [facility] Specimen Start: 08-29-2021 Office outpatient visit 15 minutes Viktoriya Garcia Work Phone: [facility] Work Phone: Start: 01-14-2019 End: 01-14-2019 Emergency department patient visit ROSA CARBALLO [facility] Procedures Date Procedure Procedure Detail Performing Clinician Start: 01-14-2019 Electrocardiogram BROOKS CARBALLO Plan of Treatment Date Care Activity Detail Author Start: 07-10-2023 Covid-19 Vaccine () Covid-19 Vaccine () [facility] Start: 07-10-2023 Influenza vaccination Influenza Vacc ine (#1) [facility] Start: 11-09-2022 Depression Assessment Depression Ass essment [facility] Start: 01-14-2022 Diabetes Screening Diabetes Screenin g [facility] Start: 2019 Shingrix Vaccine (1 of 2) Shingrix V accine (1 of 2) [facility] Start: 2014 Cologuard (FIT-DNA) Cologuard (FIT-D NA) [facility] Start: 2014 Colonoscopy Colonoscopy [facility] Start: 2014 Colorectal Cancer Screening Colorectal Cancer Screening [facility] Start: [address] Colonography [facility] Start: 2014 Fecal Occult Blood Fecal Occult Bloo d [facility] Start: 2014 Lipid 1996 panel - S julita or Plasma Lipid Screening [facility] Start: 2014 Sigmoidoscopy Sigmoidoscopy [facility] Start: 03-19-2010 Mammography Mammogram Screening [facility] Start: 1999 HPV Testing HPV Testing [facility] Start: 1990 Pap Testing Pap Testing [facility] Start: 1988 Urine microalbumin profile DTa P,Tdap,Td Vaccine (1 - Tdap) [facility] Start: 1987 Hepatitis C Screening Hepatitis C Sc reening [facility] Start: 1987 HIV Screening HIV Screening [facility] Start: 1969 Hepatitis B Vaccine (1 of 3 - 3-dose series) Hepatitis B Vaccine (1 of 3 - 3-dose series) [facility] Payers Date Payer Category Payer Self-pay [id number] Unknown [id number] 2016 Unknown 2016 Unknown [id number] 1969 Unknown [id number] [id number] 1969 Unknown [id number] [id number] 1969 Unknown [id number] 1969 Unknown [id number] Unknown [id number] Social History Date Type Detail Facility Start: 09-29-2019 End: 08-26-2023 Never smoker Never smoker [facility] Work Phone: Start: 04-16-2022 Tobacco smoking stat us NHIS Unknown if ever smoked [facility] Work Phone: Start: 1970 Sex Assigned At Female [facility] Start: 04-16-2022 End: 08-26-2023 Tobacco smoking status NHIS Never smoked tobacco [facility] Start: 08-26-2023 Tobacco use and exposure Smokeless tobacco non-user [facility] Start: 08-26-2023 Alcohol intake Ex-drinker (finding) [facility] Start: 09-29-2019 End: 08-26-2023 Tobacco use panel [facility] PHQ-2 Score 0 [facility] Start: 01-14-2019 [facility] Start: 1970 Sex Assigned At Not on file [facility] Evaluation note 03-14-2025 Note Date & Type Note Facility 03-14-2025 Evaluation note Diagnosis Onset Date Resolution Bronchitis acute March 14, 2025 4:41pm 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 Author Type: Physician Type: Progress Notes Filed: 10/12/2023 12:06 PM Note Text: REASON FOR VISIT / CHIEF COMPLAINT CHIEF COMPLAINT: Marlys Falcon is a 53 year old female who presents today for follow up office visit. Patient presents with: Right Lower Leg - Follow Up HISTORY OF PRESENT ILLNESS (HPI) PAIN EVALUATION 09/16/2023 1559 Pain Level: 0 Pain Location: Leg-Right Duration Amount of Time: 3 Duration Units: Weeks Intervention/Comfort measure: -- boot Here for follow-up of her right calf pain. She had been taking the meloxicam walking with a heel wedge and cam walker. She reports that her pain has significantly improved Any new injury, since being seen last: No Is there any overall improvement in your condition? Yes, Does anything make it worse?: Yes, prolonged standing, ascending/descending steps Does anything make it better?: Yes, immobilization, anti-inflammatory agent REVIEW OF SYMPTOMS: Integumentary: Any recent skin changes or rashes? No Neurologic: Any numbness or tingling in the LOCAL AREA? No Endocrine: Any diagnosis of diabetes? No Hematologic: Any recent bleeding episodes? No ALLERGIES ALLERGIES No Known Allergies PAST MEDICAL HISTORY PAST MEDICAL HISTORY Diagnosis Date Hypertension No past surgical history on file. PHYSICAL EXAMINATION Vitals: [facility] 01/07/2019 Body Habitus:no acute distress and alert and oriented Orientation: Normal: Oriented to person, place and time Psych: normal Sensation: sensation to light touch is grossly normal bilaterally Skin: Color, texture, turgor normal. No rashes or lesions Swelling: no swelling noted Stance: normal cervical posture, shoulder alignment, and no joint deformities or swelling noted Ortho Exam Right lower leg clinically well aligned with minimal swelling No tenderness to palpation over the gastrocnemius muscle or Achilles tendon Bergman squeeze test negative No palpable defects over the tendon Right ankle dorsiflexion 10 degrees/plantarflexion 30 degrees Imaging : None today Proceedures : None today Assessment: Symptomatically improved Achilles tendinitis/gastroc strain Plan: 1. Continue weightbearing as tolerated 2. Begin cord stretching exercises as discussed 3. Follow-up for repeat clinical evaluation as needed Yoni Crockett M.D. Department of Orthopaedic Surgery [facility] History of Present illness Narrative 10-12-2023 Yoni Crockett MD - 10/12/2023 12:02 PM EST Note Date & Type Note Facility 10-12-2023 History of Presen t illness Narrative Images from the original note were not included. REASON FOR VISIT / CHIEF COMPLAINT CHIEF COMPLAINT: Marlys Falcon is a 53 year old female who presents today for follow up office visit. Patient presents with: Right Lower Leg - Follow Up HISTORY OF PRESENT ILLNESS (HPI) PAIN EVALUATION 09/16/2023 1559 Pain Level: 0 Pain Location: Leg-Right Duration Amount of Time: 3 Duration Units: Weeks Intervention/Comfort measure: -- boot Here for follow-up of her right calf pain. She had been taking the meloxicam walking with a heel wedge and cam walker. She reports that her pain has significantly improved Any new injury, since being seen last: No Is there any overall improvement in your condition? Yes, Does anything make it worse?: Yes, prolonged standing, ascending/descending steps Does anything make it better?: Yes, immobilization, anti-inflammatory agent REVIEW OF SYMPTOMS: Integumentary: Any recent skin changes or rashes? No Neurologic: Any numbness or tingling in the LOCAL AREA? No Endocrine: Any diagnosis of diabetes? No Hematologic: Any recent bleeding episodes? No ALLERGIES ALLERGIES No Known Allergies PAST MEDICAL HISTORY PAST MEDICAL HISTORY Diagnosis Date Hypertension No past surgical history on file. PHYSICAL EXAMINATION Vitals: [facility] 01/07/2019 Body Habitus:no acute distress and alert and oriented Orientation: Normal: Oriented to person, place and time Psych: normal Sensation: sensation to light touch is grossly normal bilaterally Skin: Color, texture, turgor normal. No rashes or lesions Swelling: no swelling noted Stance: normal cervical posture, shoulder alignment, and no joint deformities or swelling noted Ortho Exam Right lower leg clinically well aligned with minimal swelling No tenderness to palpation over the gastrocnemius muscle or Achilles tendon Bergman squeeze test negative No palpable defects over the tendon Right ankle dorsiflexion 10 degrees/plantarflexion 30 degrees Imaging : None today Proceedures : None today Assessment: Symptomatically improved Achilles tendinitis/gastroc strain Plan: 1. Continue weightbearing as tolerated 2. Begin cord stretching exercises as discussed 3. Follow-up for repeat clinical evaluation as needed Yoin Crockett M.D. Department of Orthopaedic Surgery [facility] documented in this encounter [facility] Progress note 09-21-2023 Note Date & Type Note Facility 09-21-2023 Note HNO ID: [id number] Author: Yoni Crockett MD Service: ? Author Type: Physician Type: Progress Notes Filed: 09/21/2023 9:04 PM Note Text: DEPARTMENT OF ORTHOPAEDICS HISTORY OF PRESENT ILLNESS: This is a pleasant 52 year old female, who presents today with a chief complaint of right calf pain. She complains of sharp and aching pain about the posterior aspect of approximately 4 days duration. This pain is constant. She denies trauma. She complains that the pain is 5/10 at it's very worst. She denies nocturnal pain. The pain is exacerbated by walking and prolonged standing. Previous treatments have included none. She denies proximal radiation. She denies distal radiation. She denies numbness, tingling, or electric shocks. She denies popping, clicking, catching, locking, grinding, instability, buckling, or giving way. The patient's walking tolerance is minimal before resting. She reports swelling and/or warmth. PAST MEDICAL HISTORY Diagnosis Date Hypertension No past surgical history on file. Current Outpatient Medications Medication Sig Dispense Refill ibuprofen (MOTRIN) 600 mg tablet Take 1 tablet by mouth every 6 hours as needed for pain. 30 tablet 0 lisinopril-hydrochlorothiazide (PRINZIDE,ZESTORETIC) 20-12.5 mg per tablet medroxyPROGESTERone (PROVERA, CYCRIN) 10 mg tablet meloxicam (MOBIC) 7.5 mg tablet Take 1 tablet by mouth once daily. (Patient not taking: Reported on 09/16/2023) 30 tablet 2 No current facility-administered medications for this visit. ALLERGIES No Known Allergies FAMILY HISTORY Problem Relation Age of Onset Diabetes Father Heart Father Diabetes Mother Heart Mother Cancer Maternal Grandmother Heart Maternal Grandmother Cancer Maternal Grandfather Heart Maternal Grandfather Social History Tobacco Use Smoking status: Never Smokeless tobacco: Never Substance Use Topics Alcohol use: Not Currently Comment: rare Drug use: Never Occupation: [employer] Activity level: recreational, sport/activity: none REVIEW OF SYSTEMS: GENERAL: negative for malaise, significant weight loss, night sweats and fever HEENT: No changes in hearing or vision, no nose bleeds or other nasal problems., No trouble swallowing RESPIRATORY: Negative for cough, wheezing and shortness of breath CARDIOVASCULAR: Negative for chest pain, leg swelling, palpitations, orthopnea GI: Negative for abdominal discomfort, hematochezia, melena, hematemesis, change in bowel habits, diarrhea, constipation, nausea or vomiting. MUSCULOSKELETAL: See HPI. PSYCH: Negative for sleep disturbance, mood disorder and recent psychosocial stressors. HEMATOLOGY Negative for prolonged bleeding, bruising easily, and swollen nodes. ENDOCRINE: Negative for cold or heat intolerance, polyuria, polydipsia and goiter. NEURO: negative for lightheadedness, dizziness, tremor, gait imbalance, syncope and seizures. RADIOGRAPHS: Last XR Tibia AND Fibula - Impression Only XR TIBIA FIBULA 2V AP/LAT RIGHT Exam End: 08/23/2023 12:47 PM (Final result) Impression: IMPRESSION: No acute osseous abnormality. RIGHT knee osteoarthritis. Military Science Teacher: QUINCY ... OTHER STUDIES: Ultrasound right leg-Negative study for proximal DVT in the right lower extremity. Negative study for calf DVT in the right lower extremity. Negative study for superficial thrombophlebitis in the imaged segments of the right lower extremity. PHYSICAL EXAM: [facility] 01/07/2019 General: Appears stated age, well built, in no apparent distress. Psychiatric: Mood and affect appropriate. Alert and oriented x3. Musculoskeletal Exam: Gait and Station antalgic: right. RIGHT FOOT AND ANKLE EXAM: Inspection: No evidence of eythema, warmth, bruising, abrasions, scars, swelling, atrophy or deformity about bilateral lower extremities. No evidence of surgical incisions. Range of Motion: Dorsiflexion/Plantarflexion 10-20 degrees. Decreased eversion, inversion, and hindfoot motion. Palpation: Tender to palpation over the gastrocnemius muscle and the patellar tendon Negative Bergman squeeze test Stability: Negative: Anterior drawer test, Talar tilt, Stress external rotation test, and Squeeze test. Negative David's, calf tenderness or palpable cords. Bilateral lower extremities show equal motion of the hips and knees. Normal strength, tone, and stability of the remainder of both lower extremities distally. Neurologic Exam: Intact sensation and reflexes in both lower extremities. Vascular: 2+ pedal pulses of both lower extremities. PROCEDURE: Not applicable IMPRESSION: 1. right Achilles tendonitis and Gastroc sprain/strain. PLAN: 1. Medication: Mobic. 2. Test(s)/Imaging/Referral(s): None. 3. Intervention: Cam Walker and /or heel wedge. 4. Follow-up: For repeat clinical evaluation. Yoni Crockett MD I would like to thank you for the kind referral of (more content not included)... [facility] History of Present illness Narrative 09-21-2023 Yoni Crockett MD - 09/21/2023 8:54 PM EST Note Date & Type Note Facility 09-21-2023 History of Presen t illness Narrative Images from the original note were not included. DEPARTMENT OF ORTHOPAEDICS HISTORY OF PRESENT ILLNESS: This is a pleasant 52 year old female, who presents today with a chief complaint of right calf pain. She complains of sharp and aching pain about the posterior aspect of approximately 4 days duration. This pain is constant. She denies trauma. She complains that the pain is 5/10 at it's very worst. She denies nocturnal pain. The pain is exacerbated by walking and prolonged standing. Previous treatments have included none. She denies proximal radiation. She denies distal radiation. She denies numbness, tingling, or electric shocks. She denies popping, clicking, catching, locking, grinding, instability, buckling, or giving way. The patient's walking tolerance is minimal before resting. She reports swelling and/or warmth. PAST MEDICAL HISTORY Diagnosis Date Hypertension No past surgical history on file. Current Outpatient Medications Medication Sig Dispense Refill ibuprofen (MOTRIN) 600 mg tablet Take 1 tablet by mouth every 6 hours as needed for pain. 30 tablet 0 lisinopril-hydrochlorothiazide (PRINZIDE,ZESTORETIC) 20-12.5 mg per tablet medroxyPROGESTERone (PROVERA, CYCRIN) 10 mg tablet meloxicam (MOBIC) 7.5 mg tablet Take 1 tablet by mouth once daily. (Patient not taking: Reported on 09/16/2023) 30 tablet 2 No current facility-administered medications for this visit. ALLERGIES No Known Allergies FAMILY HISTORY Problem Relation Age of Onset Diabetes Father Heart Father Diabetes Mother Heart Mother Cancer Maternal Grandmother Heart Maternal Grandmother Cancer Maternal Grandfather Heart Maternal Grandfather Social History Tobacco Use Smoking status: Never Smokeless tobacco: Never Substance Use Topics Alcohol use: Not Currently Comment: rare Drug use: Never Occupation: [employer] Activity level: recreational, sport/activity: none REVIEW OF SYSTEMS: GENERAL: negative for malaise, significant weight loss, night sweats and fever HEENT: No changes in hearing or vision, no nose bleeds or other nasal problems., No trouble swallowing RESPIRATORY: Negative for cough, wheezing and shortness of breath CARDIOVASCULAR: Negative for chest pain, leg swelling, palpitations, orthopnea GI: Negative for abdominal discomfort, hematochezia, melena, hematemesis, change in bowel habits, diarrhea, constipation, nausea or vomiting. MUSCULOSKELETAL: See HPI. PSYCH: Negative for sleep disturbance, mood disorder and recent psychosocial stressors. HEMATOLOGY Negative for prolonged bleeding, bruising easily, and swollen nodes. ENDOCRINE: Negative for cold or heat intolerance, polyuria, polydipsia and goiter. NEURO: negative for lightheadedness, dizziness, tremor, gait imbalance, syncope and seizures. RADIOGRAPHS: Last XR Tibia & Fibula - Impression Only XR TIBIA FIBULA 2V AP/LAT RIGHT Exam End: 08/23/2023 12:47 PM (Final result) Impression: IMPRESSION: No acute osseous abnormality. RIGHT knee osteoarthritis. 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 OTHER STUDIES: Ultrasound right leg-Negative study for proximal DVT in the right lower extremity. Negative study for calf DVT in the right lower extremity. Negative study for superficial thrombophlebitis in the imaged segments of the right lower extremity. PHYSICAL EXAM: [facility] 01/07/2019 General: Appears stated age, well built, in no apparent distress. Psychiatric: Mood and affect appropriate. Alert and oriented x3. Musculoskeletal Exam: Gait and Station antalgic: right. RIGHT FOOT & ANKLE EXAM: Inspection: No evidence of eythema, warmth, bruising, abrasions, scars, swelling, atrophy or deformity about bilateral lower extremities. No evidence of surgical incisions. Range of Motion: Dorsiflexion/Plantarflexion 10-20 degrees. Decreased eversion, inversion, and hindfoot motion. Palpation: Tender to palpation over the gastrocnemius muscle and the patellar tendon Negative Bergman squeeze test Stability: Negative: Anterior drawer test, Talar tilt, Stress external rotation test, and Squeeze test. Negative David's, calf tenderness or palpable cords. Bilateral lower extremities show equal motion of the hips and knees. Normal strength, tone, and stability of the remainder of both lower extremities distally. Neurologic Exam: Intact sensation and reflexes in both lower extremities. Vascular: 2+ pedal pulses of both lower extremities. PROCEDURE: Not applicable IMPRESSION: 1. right Achilles tendonitis and Gastroc sprain/strain. PLAN: 1. Medication: Mobic. 2. Test(s)/Imaging/Referral(s): None. 3. Intervention: Cam Walker and /or heel wedge. 4. Follow-up: For repeat clinical evaluation. Yoni Crockett MD I would like to thank you for the kind referral of . I appreciate the opportunity to be involved in her care. Please do not hesitate to call upon me if I may be of further assistance. documented in this encounter [facility] History of Present illness Narrative 08-28-2021 Note Date & Type Note Facility 08-28-2021 History of Presen t illness Narrative 50-year-old female presents to urgent care today with left leg rash that started yesterday. States for a few days before this she developed some pain in her thigh and yesterday woke up with a rash that was rather painful. Describes pain as burning sensation. Patient went to the pharmacy and was giving a topical cream that did not help. States she was told to come in today if is not improved. Denies any itching. Admits the pain feels burning like. No new creams or contact with any plants or allergens. Admits to history of chickenpox as a kid. Denies any calf pain. Denies fevers, chills, body aches. PMH: HTN [facility] Work Phone: Evaluation note Note Date & Type Note Facility Evaluation note Diagnosis Onset Date Anxiety acute Hypertension [facility] Work Phone: Evaluation note Note Date & Type Note Facility Evaluation note Diagnosis Achilles tendinitis of right lower extremity- Primary Achilles bursitis or tendinitis documented in this encounter [facility] Evaluation note Note Date & Type Note Facility Evaluation note Diagnosis Achilles tendinitis of right lower extremity- Primary Achilles bursitis or tendinitis documented in this encounter [facility] Reason for referral (narrative) Note Date & Type Note Facility Reason for referral (narrative) No reason for referral information available [facility] Work Phone: Summary Purpose Family History No Family History Records FoundNo Family History Records FoundNo Family History Records FoundNo Family History Records FoundNo Family History Records FoundNo Family History Records FoundNo Family History Records FoundNo Family History Records Found Advance Directives No Advanced Directives Records FoundNo Advanced Directives Records FoundNo Advanced Directives Records FoundNo Advanced Directives Records FoundNo Advanced Directives Records FoundNo Advanced Directives Records FoundNo Advanced Directives Records FoundNo Advanced Directives Records Found Chief Complaint and Reason for Visit Chief Complaint medication refills Reason for Visit Anxiety Hypertension Chief Complaint Admit Date medication refills March 14, 2025 4:41pm Lymphadema April 11, 2025 3:24p m Reason for Visit Admit Date Bronchitis March 14, 2025 4:41pm 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 DATE CREATED AUTHOR AUTHOR'S ORGANIZ ATION 10/14/2023 [facility] DATE CREATED AUTHOR AUTHOR'S ORGANIZ ATION 12/07/2024 [facility] DATE CREATED AUTHOR AUTHOR'S ORGANIZ ATION 04/14/2025 [facility] Goals (unrecognized section and content) Goals may be documented in a n alternate sectionGoals may be documented in an alternate section Source Comments (unrecognize d section and content) In the event this informatio n is protected by the Federal Confidentiality of Alcohol and Drug Abuse Patient Records regulations: The Federal rules restrict any use of the information to criminally investigate or prosecute any alcohol or drug abuse patient.[facility] the event this information is protected by the Federal Confidentiality of Alcohol and Drug Abuse Patient Records regulations: The Federal rules restrict any use of the information to criminally investigate or prosecute any alcohol or drug abuse patient.[facility] Reason for Visit (unrecogniz ed section and content) Reason Comments ED Follow-up Pain Reason Comments Follow Up Care Teams (unrecognized sec tion and content) Dominatrix Relationship Specialty Start Date End Date Viktoriya Garcia APRN.CNP [address] [place] [address] PCP - General Family Medicine 08/09/18 Dominatrix Relationship Specialty Start Date End Date Viktoriya Garcia APRN.GREGG [address] [place] [address] PCP - General Family Medicine 08/09/18 Team Status: Active Member Role Status Dates Viktoriya Garcia NP, NP-C Primary Care Provider Active Team Status: Inactive Member Role Status Dates Viktoriya Garcia NP, NP-C Primary Care Provider Active Start: March 14, 2025 End: March 14, 2025 Viktoriya Garcia NP, NP-Zeke Attending Provider Active Start: March 14, 2025 End: March 14, 2025 Viktoriya Garcia NP, NP-C Referring Provider Active Start: March 14, 2025 End: March 14, 2025 Team Status: Inactive Member Role Status Dates Viktoriya Garcia NP, NP-C Primary Care Provider Active Start: April 11, 2025 End: April 11, 2025 Viktoriya Garcia NP, NP-C Referring Provider Active Start: April 11, 2025 End: April 11, 2025 CHELITA Draper Attending Provider Active Star t: April 11, 2025 End: April 11, 2025 FOR RECORDS PERTAINING TO PATIENTS WHO ARE OR HAVE BEEN ENROLLED IN A CHEMICAL DEPENDENCY/SUBSTANCEABUSE PROGRAM, SOME INFORMATION MAY BE OMITTED. This clinical summary was aggregated from multiple sources. Caution should be exercised in using it in the provision of clinical care. This summary normalizes information from multiple sources, and as a consequence, information in this document may materially change the coding, format and clinical context of patient data. In addition, data may be omitted in some cases. CLINICAL DECISIONS SHOULD BE BASED ON THE PRIMARY CLINICAL RECORDS. [facility]. provides no warranty or guarantee of the accuracy or completeness of information in this document.
[2025-06-28 22:09] LABS: Hematocrit 42.1 % (37-47); Hemoglobin 14.2 g/dL (12.0-15.0); Immature Granulocytes Count 0.010 X10^3/uL (0.0-0.0); Mean Corp Hgb Conc 33.7 g/dL (32-36); Mean Corpuscular Volume 92.7 fL (81-99); Mean Platelet Vol. 9.5 fl (6.2-12.0); NRBC Flagged by Analyzer 0 % (0-5); Platelet Count 291 K/mm3 (150-450); RBC Distribution Width CV 12.8 % (11.6-14.6); RBC Distribution Width SD 43.7 fl (35.1-43.9); Red Blood Count 4.54 M/mm3 (4.2-5.4); White Blood Count 6.5 K/mm3 (4.4-11.0)
[2025-06-28 22:39] LABS: AST(SGOT) 24 U/L (<=31); Alanine Aminotransfer ALT/SGPT 19 U/L (<=34); Albumin, Serum 4.2 g/dL (3.5-5.0); Alkaline Phosphatase 96 U/L (35-104); Anion Gap 15 (5-15); BUN 19 mg/dL (4-19); BUN/Creat Ratio 25.9 RATIO (10-20); Calcium,Total 9.9 mg/dL (7.6-11.0); Carbon Dioxide 25.3 mmol/L (21.0-32.0); Chloride 97 mmol/L (98-108); Globulin 3.2 g/dL (2.2-4.2); Glucose 85 mg/dL (70-99); Potassium 3.9 mmol/L (3.3-5.1)
[2025-06-29 12:22] LABS: Troponin T High Sensitivity 6 ng/L (<=14)
[2025-06-29 13:39] LABS: Lipase 32 U/L (13-75)
[2025-06-30 04:07] LABS: CRP, High Sensitivity 5.30 mg/L (0.00-3.00)
== END | disposition home or self-care (01) ==
PROVIDERS: PCP Nurse Practitioner; Referring Provider Nurse Practitioner; Visit Provider Nurse Practitioner
DX: I10 Essential (primary) hypertension (principal); K21.9 Gastro-esophageal reflux disease without esophagitis; R10.13 Epigastric pain; E03.9 Hypothyroidism, unspecified
CPT/HCPCS: 80053; 83690; 84439; 84443; 84484; 85025; 86141